=== PATIENT | male | born 1980 | race Caucasian/White ===

== ENCOUNTER 2016-07-10 21:53 | Emergency (ER) | payer MEDICAID ==
[2016-07-10 22:20] VITALS: BP 124/77
[2016-07-10] MEDS ORDERED: LORazepam 1 MG Tab PO ONE (22:22)
--- NOTE | 2016-07-10 22:28 | EDM.PDOC ---
ED HISTORY OF PRESENT ILLNESS - General Chief Complaint: Respiratory Problem Stated Complaint: TROUBLE BREATHING Time Seen by Provider: 07/10/16 22:15 Source: Reports: Patient, Old records History Limitations: Reports: No limitations - History of Present Illness INITIAL COMMENTS - FREE TEXT/NARRATIVE: 36 yo male 1/2 ppd smoker with a pHx of PE presents with medial L arm discomfort and mild SOB. Sx's have waxed and waned since this morning. Also has a mild, non-productive cough tonight. No fever or calf pain or LE edema. Also has a dx of anxiety, but has declined tx for this in the past. Symptom Onset Date: 07/10/16 Symptom Onset Time: 07:00 Timing/Duration: Reports: Hour(s):, Intermittent, Waxing/waning Severity: moderate Location, General: Reports: chest, upper extremity, left Quality: Reports: Other (No chest pain, medial L arm feels full) Improves with: Reports: None Worsens with: Reports: None Context, General: Reports: Other (smoker, hx of PE, anxiety) Associated Symptoms: Reports: cough, shortness of breath. 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) - Related Data Allergies/ADRs: Allergies Allergy/AdvReac Type Severity Reaction Status Date / Time No Known Allergies Allergy Verified 07/10/16 22:13 Home Meds: Home Meds NK [No Known Home Meds] 07/10/16 [History] Past Medical History - Past Health History Medical/Surgical History: Denies Medical/Surgical History HEENT History: Reports: Impaired vision Respiratory History: Reports: PE Musculoskeletal History: Reports: Back pain, chronic Psychiatric History: Reports: Panic attack Other Hematologic History: 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, 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 - Past Surgical History Other Respiratory Surgeries/Procedures: PE x 6 years ago GI Surgical History: Reports: Cholecystectomy Other Musculoskeletal Surgeries/Procedures:: tailbone surgery Social & Family History - Family History Family Medical History: Noncontributory - Tobacco Use Smoking Status *Q: Current Every Day Smoker Years of Tobacco use: 24 Packs/Tins Daily: 1 Second Hand Smoke Exposure: Yes - Caffeine Use Caffeine Use: Reports: Soda - Recreational Drug Use Recreational Drug Use: No ED ROS GENERAL - Review of Systems Review Of Systems: See Below Constitutional: Reports: no symptoms HEENT: Reports: No symptoms Respiratory: Reports: shortness of breath, cough. Denies: wheezing, pleuritic chest pain, sputum, hemoptysis Cardiovascular: Reports: No symptoms Endocrine: Reports: no symptoms GI/Abdominal: Reports: No symptoms : Reports: no symptoms Musculoskeletal: Reports: arm pain (L prox/medial arm) Skin: Reports: no symptoms Neurological: Reports: no symptoms Psychiatric: Reports: No symptoms ED EXAM, GENERAL - Physical Exam Exam: See Below Exam Limited By: No limitations General Appearance: alert, WD/WN, no apparent distress Eye Exam: bilateral eye: normal inspection Ears: normal external exam, normal canal, hearing grossly normal Ear Exam: bilateral ear: auricle normal, canal normal Nose: normal inspection, normal mucosa, no blood Throat/Mouth: Normal inspection, Normal lips, Normal oropharynx, Normal voice, No airway compromise Head: atraumatic, normocephalic Neck: normal inspection, supple Respiratory/Chest: no respiratory distress, lungs clear, normal breath sounds, no accessory muscle use Cardiovascular: regular rate, rhythm, no edema GI/Abdominal: normal bowel sounds, soft, non tender, no distention Back Exam: normal inspection Extremities: normal inspection, normal range of motion, non-tender, no pedal edema, other (No calf pain, Enma's sign absent) Neurological: alert, oriented, CN II-XII intact, normal cognition, normal gait, normal reflexes, no motor/sensory deficits Psychiatric: normal affect, normal mood Skin Exam: Warm, Dry, Intact, Normal color, No rash Lymphatic: no adenopathy EKG INTERPRETATION EKG Date: 07/10/16 Time: 22:25 Rhythm: NSR Rate (beats/min): 54 [place]: normal P-wave: present QRS: normal ST-T: normal QT: normal Comparison: change from previous EKG EKG Interpretation Comments: Rate has slowed by 29/min since last EKG, otherwise no change. Course - Vital Signs Text/Narrative:: Ativan 1 mg po-feels better ASA 324 mg po Last Recorded V/S: Last Vital Signs Temp 36.6 C 07/10/16 22:00 Pulse 68 07/10/16 22:00 Resp 18 07/10/16 22:00 BP 124/77 07/10/16 22:00 Pulse Ox 97 07/10/16 22:00 - Orders/Labs/Meds Orders: Active Orders 24 hr Category Date Time Status Cardiac Monitoring [RC] .As Directed Care 07/10/16 22:20 Active EKG Documentation Completion [RC] ASDIRECTED Care 07/10/16 22:20 Active Aspirin Med 07/10/16 23:21 Once 324 mg PO ONETIME ONE EKG 12 Lead [EK] Routine Ther 07/10/16 22:20 Ordered Labs: Laboratory Tests 07/10/16 07/10/16 Range/Units 22:30 22:30 D-Dimer, Quantitative < 100 L (100-400) ng/mL Troponin I < 0.01 L (0.02-0.06) NG/ML Meds: Medications Discontinued Medications Generic Name Dose Route Start Last Admin Trade Name Freq PRN Reason Stop Dose Admin Lorazepam 1 mg 07/10/16 22:22 07/10/16 22:34 Ativan PO 07/10/16 22:23 1 mg ONETIME ONE Administration Departure - Departure Time of Disposition: 23:30 Disposition: Home, Self-Care 01 Condition: good Clinical Impression: Anxiety Forms: ED Department Discharge - My Orders Last 24 Hours: My Active Orders 07/10/16 22:20 Cardiac Monitoring [RC] .As Directed EKG Documentation Completion [RC] ASDIRECTED EKG 12 Lead [EK] Routine 07/10/16 23:21 Aspirin 324 mg PO ONETIME ONE - Assessment/Plan Last 24 Hours: My Active Orders 07/10/16 22:20 Cardiac Monitoring [RC] .As Directed EKG Documentation Completion [RC] ASDIRECTED EKG 12 Lead [EK] Routine 07/10/16 23:21 Aspirin 324 mg PO ONETIME ONE
[2016-07-10] MEDS ORDERED: Aspirin 81 MG Tab.Chew PO ONE (23:21)
[2016-07-10] MEDS ORDERED: LORazepam 0.5 MG Tab PO ONE (23:25)
== END 2016-07-10 23:30 | disposition home or self-care (01) ==
LOC: FB.ED 21:53
DX: F41.9 Anxiety disorder, unspecified (principal); Z90.49 Acquired absence of other specified parts of digestive tract; F17.210 Nicotine dependence, cigarettes, uncomplicated
CPT/HCPCS: 36415; 84484; 85379; 93005; 99285; A9270

== ENCOUNTER 2016-07-12 09:28 | Emergency (ER) | payer MEDICAID ==
[2016-07-12] MEDS ORDERED: Ketorolac 60 MG/2 ML SDV IM ONE (10:37)
[2016-07-12 11:33] VITALS: BP 117/61
--- NOTE | 2016-07-12 11:35 | EDM.PDOC ---
ED HPI GENERAL MEDICAL PROBLEM - General Stated Complaint: SOB Time Seen by Provider: 07/12/16 09:28 Source of Information: Reports: Patient, Family History Limitations: Reports: No limitations - History of Present Illness INITIAL COMMENTS - FREE TEXT/NARRATIVE: 36 y.o.w.m -smoker-came to the ed due to CP. Pt was seen yesterday here in the ed. W/U was neg. Pain is worse with deep insp. 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 Had PE 7 years ago. No N/V/D Onset: gradual Onset Date: 07/11/16 Onset Time: 05:00 Duration: Intermittent Location: Reports: chest Quality: Reports: Dull Severity: moderate Improves with: Reports: Immobilization Worsens with: Reports: Breathing Associated Symptoms: Reports: denies other symptoms Left Lower Chest Pain Score (Numeric/FACES): 4 - Related Data Allergies Allergy/AdvReac Type Severity Reaction Status Date / Time No Known Allergies Allergy Verified 07/10/16 22:13 Home Meds: Home Meds NK [No Known Home Meds] 07/10/16 [History] Past Medical History - Past Health History Medical/Surgical History: Denies Medical/Surgical History HEENT History: Reports: Impaired vision Cardiovascular History: Reports: Blood clots/VTE/DVT Respiratory History: Reports: PE Musculoskeletal History: Reports: Back pain, chronic Psychiatric History: Reports: Panic attack Other Hematologic History: 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, 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 - Past Surgical History Other Respiratory Surgeries/Procedures: PE x 6 years ago GI Surgical History: Reports: Cholecystectomy Other Musculoskeletal Surgeries/Procedures:: tailbone surgery Social & Family History - Family History Family Medical History: Noncontributory - Tobacco Use Smoking Status *Q: Current Every Day Smoker Years of Tobacco use: 24 Packs/Tins Daily: 1 Second Hand Smoke Exposure: Yes - Caffeine Use Caffeine Use: Reports: Soda - Recreational Drug Use Recreational Drug Use: No ED ROS GENERAL - Review of Systems Review Of Systems: See Below Constitutional: Reports: no symptoms HEENT: Reports: No symptoms Respiratory: Reports: no symptoms Cardiovascular: Reports: Chest pain Endocrine: Reports: no symptoms GI/Abdominal: Reports: No symptoms : Reports: no symptoms Musculoskeletal: Reports: no symptoms Skin: Reports: no symptoms Neurological: Reports: no symptoms Hematologic/Lymphatic: Reports: no symptoms Immunologic: Reports: no symptoms ED EXAM, GENERAL - Physical Exam Exam: See Below Exam Limited By: No limitations General Appearance: alert, WD/WN, mild distress Ears: normal external exam, normal canal, hearing grossly normal, normal TMs Ear Exam: bilateral ear: auricle normal, canal normal, TM normal Nose: normal inspection, normal mucosa, no blood Throat/Mouth: Normal inspection, Normal lips, Normal teeth, Normal gums, Normal oropharynx, Normal voice, No airway compromise Head: atraumatic, normocephalic Neck: normal inspection, supple, non-tender, full range of motion Respiratory/Chest: no respiratory distress, lungs clear, normal breath sounds, no accessory muscle use, chest non-tender Cardiovascular: normal peripheral pulses, regular rate, rhythm, no edema, no gallop, no JVD, no murmur, no rub GI/Abdominal: normal bowel sounds, soft, no distention, no abnormal bruit, no mass, splenomegaly (Male) Exam: Deferred Rectal (Males) Exam: Deferred Back Exam: normal inspection, full range of motion, NT Extremities: normal inspection, normal range of motion, non-tender, normal capillary refill, no pedal edema Neurological: alert, oriented, CN II-XII intact, normal cognition, normal gait, normal reflexes, no motor/sensory deficits Psychiatric: normal affect, normal mood Skin Exam: Warm, Dry, Intact, Normal color, No rash Lymphatic: no adenopathy Course - Vital Signs Text/Narrative:: 36 y.o.w.m -smoker-came to the ed due to CP. Pt was seen yesterday here in the ed. W/U was neg. Pain is worse with deep insp. 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 Had PE 7 years ago. No N/V/D PE: CW tenderness, enlarged spleen Imaging: CXR NAD Labs: CBC neg Tx: Toradol 60 mg Impression: Splenomegaly, CW sprain Reexam: Improved Plan: D/C to home with F/U Last Recorded V/S: Last Vital Signs Temp 36.4 C 07/12/16 09:30 Pulse 70 07/12/16 09:30 Resp 20 07/12/16 09:30 BP 117/61 07/12/16 09:30 Pulse Ox 100 07/12/16 09:30 - Orders/Labs/Meds Labs: Laboratory Tests 07/12/16 07/12/16 Range/Units 10:20 10:20 WBC 6.4 (4.5-12.0) X10-3/uL RBC 5.03 (4.30-5.75) x10(6)uL Hgb 15.2 (11.5-15.5) g/dL Hct 45.1 (30.0-51.3) % MCV 89.7 (80-96) fL MCH 30.3 (27.7-33.6) pg MCHC 33.8 (32.2-35.4) g/dL RDW 12.5 (11.5-15.5) % Plt Count 215 (125-369) X10(3)uL MPV 9.1 (7.4-10.4) fL Neut % (Auto) 55.4 (46-82) % Lymph % (Auto) 30.9 (13-37) % [place] % (Auto) 9.5 (4-12) % Eos % (Auto) 3 (1.0-5.0) % Baso % (Auto) 1 (0-2) % Neut # 3.5 (1.6-8.3) # Lymph # 2.0 (0.6-5.0) # [place] # 0.6 (0.0-1.3) # Eos # 0.2 (0.0-0.8) # Baso # 0.1 (0.0-0.2) # Monoscreen Negative (NEGATIVE) Meds: Medications Discontinued Medications Generic Name Dose Route Start Last Admin Trade Name Freq PRN Reason Stop Dose Admin Ketorolac Tromethamine 60 mg 07/12/16 10:37 07/12/16 11:11 Toradol IM 07/12/16 10:38 60 mg ONETIME ONE Administration Departure - Departure Time of Disposition: 11:35 Disposition: Home, Self-Care 01 Condition: good Clinical Impression: Spleen enlarged, Chest wall pain Referrals: PCP,None [Primary Care Provider] - Forms: Return to Work/School Form Additional Instructions: Please take motrin for pain for now. please quit tobacco use. Please f/u, come back if symptoms get worse acutely.
--- NOTE | 2016-07-13 09:21 | CR ---
INDICATION: Chest pain anterior left. CHEST: PA and lateral views of the chest 07/12/2016 were compared with 2015 AP upright view and revealed the heart to remain normal in size and shape. Mediastinum was unremarkable. Bony structures are fairly unremarkable, with a very trivial degree of dextroconvex scoliosis upper middle thoracic spine. An active infiltrate or effusion was not identified. IMPRESSION: No acute process - no significant active disease. MTDD
== END 2016-07-12 11:54 | disposition home or self-care (01) ==
LOC: FB.ED 09:28
DX: R16.1 Splenomegaly, not elsewhere classified (principal); R07.89 Other chest pain; F17.210 Nicotine dependence, cigarettes, uncomplicated; Z90.49 Acquired absence of other specified parts of digestive tract; Z98.890 Other specified postprocedural states; Z86.718 Personal history of other venous thrombosis and embolism
CPT/HCPCS: 36415; 71020; 85025; 86308; 96372; 99284; J1885

== ENCOUNTER 2016-10-15 18:40 | Emergency (ER) | payer MEDICAID ==
--- NOTE | 2016-10-15 19:27 | EDM.PDOC ---
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 He is reporting mild burning over the dorsums of both hands, and residual varnish he was unable to remove with a skin cleanser. He has tried no med. 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 - Past Surgical History Other Respiratory Surgeries/Procedures: PE x 6 years ago GI Surgical History: Reports: Cholecystectomy Other Musculoskeletal Surgeries/Procedures:: tailbone surgery Social & Family History - Family History Family Medical History: Noncontributory - Tobacco Use Smoking Status *Q: Current Every Day Smoker Years of Tobacco use: 16 Packs/Tins Daily: 1 Second Hand Smoke Exposure: Yes - Caffeine Use Caffeine Use: Reports: Soda - Recreational Drug Use Recreational Drug Use: No ED ROS GENERAL - Review of Systems Review Of Systems: See Below Constitutional: Reports: No Symptoms HEENT: Reports: No Symptoms Respiratory: Reports: No Symptoms Cardiovascular: Reports: No Symptoms Endocrine: Reports: No Symptoms GI/Abdominal: Reports: No Symptoms Musculoskeletal: Reports: No Symptoms Skin: Reports: Other (burning sensation to hands) Neurological: Reports: No Symptoms Psychiatric: Reports: No Symptoms Hematologic/Lymphatic: Reports: No Symptoms Immunologic: Reports: No Symptoms ED EXAM, SKIN/RASH Exam: See Below Exam Limited By: No Limitations General Appearance: Alert, WD/WN, No Apparent Distress Head: Normocephalic Neck: Normal Inspection Respiratory/Chest: Lungs Clear, Normal Breath Sounds Cardiovascular: Regular Rate, Rhythm Back Exam: Normal Inspection Extremities: Normal Range of Motion, Non-Tender, Normal Capillary Refill, Other (minor injection of dorsums of both hands with residual varnish visible) Neurological: Alert, Oriented, CN II-XII Intact, No Motor/Sensory Deficits Psychiatric: Normal Affect, Normal Mood Skin: Erythema (minor) Course - Vital Signs Text/Narrative:: Following assession at the [facility] ED, the varnish was removed with Xylene solvent , and hands were thoroughly washed. No debris, swelling or vesicular eruption was detected. There was residual minor burning sensation. Last Recorded V/S: Last Vital Signs Temp 36.4 C 10/15/16 18:50 Pulse 86 10/15/16 18:50 Resp 18 10/15/16 18:50 BP 137/82 10/15/16 18:50 Pulse Ox 98 10/15/16 18:50 Departure - Departure Time of Disposition: 19:25 Disposition: Home, Self-Care 01 Condition: good Clinical Impression: Exposure to chemical irritant - Discharge Information Forms: ED Department Discharge - Problem List & Annotations (1) Exposure to chemical irritant SNOMED Code(s): 658272126 Code(s): Z77.098 - CONTACT W AND EXPSR TO OTH HAZARD, CHIEFLY NONMED, CHEMICALS Status: Acute Annotation/Comment:: Sxs cares, cortisone creme OTC for sx relief if needed. - Problem List Review Problem List Initiated/Reviewed/Updated: Yes - Assessment/Plan Plan: Follow up with PCP if needed.
[2016-10-15 19:35] VITALS: BP 135/80
== END 2016-10-15 19:30 | disposition home or self-care (01) ==
LOC: FB.ED 18:40
DX: L53.9 Erythematous condition, unspecified (principal); R20.8 Other disturbances of skin sensation; F17.210 Nicotine dependence, cigarettes, uncomplicated; Z90.49 Acquired absence of other specified parts of digestive tract; Z98.890 Other specified postprocedural states
CPT/HCPCS: 99283

== ENCOUNTER 2017-01-15 07:58 | Emergency (ER) | payer MEDICAID ==
[2017-01-15 08:20] VITALS: BP 123/70
[2017-01-15] MEDS ORDERED: Ondansetron 4 MG Tab.DIS PO ONE (08:29)
--- NOTE | 2017-01-15 08:38 | EDM.PDOC ---
ED HPI GENERAL MEDICAL PROBLEM - General Chief Complaint: Gastrointestinal Problem Stated Complaint: FLU Time Seen by Provider: 01/15/17 08:25 Source of Information: Reports: Patient, Old Records, RN History Limitations: Reports: No Limitations - History of Present Illness INITIAL COMMENTS - FREE TEXT/NARRATIVE: 36 yo male presents with nausea, vomiting, and diarrhea that began in the night last night. No fever. No hematemesis. Was sent into the ER by his boss due to his sx's. Not dizzy with standing. 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) - Related Data Allergies Allergy/AdvReac Type Severity Reaction Status Date / Time No Known Allergies Allergy Verified 01/15/17 08:21 Home Meds: Home Meds NK [No Known Home Meds] 07/10/16 [History] Past Medical History - Past Health History Medical/Surgical History: Denies Medical/Surgical History HEENT History: Reports: Impaired Vision Cardiovascular History: Reports: Blood Clots/VTE/DVT Respiratory History: Reports: PE Musculoskeletal History: Reports: Back Pain, Chronic Psychiatric History: Reports: Panic Attack Hematologic History: Reports: Other (See Below) Other Hematologic History: 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, 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 - Past Surgical History Other Respiratory Surgeries/Procedures: PE x 6 years ago GI Surgical History: Reports: Cholecystectomy Other Musculoskeletal Surgeries/Procedures:: tailbone surgery Social & Family History - Family History Family Medical History: Noncontributory - Tobacco Use Smoking Status *Q: Current Every Day Smoker Years of Tobacco use: 16 Packs/Tins Daily: 1 Second Hand Smoke Exposure: Yes - Caffeine Use Caffeine Use: Reports: Soda - Recreational Drug Use Recreational Drug Use: No ED ROS GENERAL - Review of Systems Review Of Systems: See Below Constitutional: Reports: No Symptoms, Decreased Appetite. Denies: Fever, Chills HEENT: Reports: No Symptoms Respiratory: Reports: No Symptoms Cardiovascular: Reports: No Symptoms Endocrine: Reports: No Symptoms GI/Abdominal: Reports: Abdominal Pain, Diarrhea, Decreased Appetite, Nausea, Vomiting. Denies: Black Stool, Bloody Stool, Constipation : Reports: No Symptoms Musculoskeletal: Reports: No Symptoms Skin: Reports: No Symptoms Neurological: Reports: No Symptoms Psychiatric: Reports: No Symptoms ED EXAM, GI/ABD - Physical Exam Exam: See Below Exam Limited By: No Limitations General Appearance: Alert, WD/WN, No Apparent Distress Eyes: Bilateral: Normal Appearance, EOMI Ears: Normal External Exam, Normal Canal, Hearing Grossly Normal Nose: Normal Inspection, Normal Mucosa, No Blood Throat/Mouth: Normal Inspection, Normal Lips, Normal Gums, Normal Oropharynx, Normal Voice, No Airway Compromise Head: Atraumatic, Normocephalic Neck: Normal Inspection Respiratory/Chest: No Respiratory Distress, Lungs Clear, Normal Breath Sounds, No Accessory Muscle Use Cardiovascular: Regular Rate, Rhythm, No Edema GI/Abdominal Exam: Normal Bowel Sounds, Soft, Non-Tender, No Distention Back Exam: Normal Inspection Extremities: Normal Inspection, Normal Range of Motion, Non-Tender, No Pedal Edema Neurological: Alert, Oriented, CN II-XII Intact, No Motor/Sensory Deficits Psychiatric: Normal Affect, Normal Mood Skin Exam: Warm, Dry, Intact, Normal Color, No Rash Lymphatic: No Adenopathy Course - Vital Signs Last Recorded V/S: Last Vital Signs Temp 36.6 C 01/15/17 08:00 Pulse 65 01/15/17 08:00 Resp 18 01/15/17 08:00 BP 123/70 01/15/17 08:00 Pulse Ox - Orders/Labs/Meds Meds: Medications Discontinued Medications Generic Name Dose Route Start Last Admin Trade Name Lorraine PRN Reason Stop Dose Admin Ondansetron HCl 4 mg 01/15/17 08:29 Zofran Odt PO 01/15/17 08:30 ONETIME ONE Departure - Departure Time of Disposition: 08:45 Disposition: Home, Self-Care 01 Condition: Good Clinical Impression: Gastroenteritis - Discharge Information Referrals: PCP,None [Primary Care Provider] - Forms: ED Department Discharge, ED Return to Work/School Form Additional Instructions: Take Zofran ODT every 6 hrs as needed for nausea control. Take loperamide per package instructions for diarrhea control. Take acetaminophen as needed for pain /fever control. Rest. Clear liquids only until no vomiting for 8 hrs, then advance diet slowly to include a BRAT diet. Once diarrhea is gone you may advance to a regular diet. Recheck as needed.
== END 2017-01-15 08:45 | disposition home or self-care (01) ==
LOC: FB.ED 07:58
DX: K52.9 Noninfective gastroenteritis and colitis, unspecified (principal); H54.7 Unspecified visual loss; F17.210 Nicotine dependence, cigarettes, uncomplicated
CPT/HCPCS: 99283; A9270

== ENCOUNTER 2017-01-31 12:28 | Emergency (ER) | payer OTHER, MEDICAID ==
[2017-01-31] MEDS ORDERED: Amoxicillin/Clavulanate K 875-125 MG Tab PO ONE (13:00)
--- NOTE | 2017-01-31 13:01 | EDM.PDOC ---
ED HPI GENERAL MEDICAL PROBLEM - General Chief Complaint: Laceration Stated Complaint: LACERATION LT FINGER Time Seen by Provider: 01/31/17 12:42 Source of Information: Reports: Patient, Other (coworker) History Limitations: Reports: No Limitations - History of Present Illness INITIAL COMMENTS - FREE TEXT/NARRATIVE: 36 years old zenobia weber came to the ed with his coworker after he injured his r index finger on a machine. No otyer acute injury of complains. No N/V/D BP 137/87 puls 83, temp 36.4 pulse ox 97% on RA Onset: Today Onset Date: 01/31/17 Onset Time: 12:10 Duration: Minutes:, Constant Location: Reports: Upper Extremity, Right Quality: Reports: Ache Severity: Mild Improves with: Reports: None Worsens with: Reports: None Associated Symptoms: Reports: No Other Symptoms - Related Data Allergies Allergy/AdvReac Type Severity Reaction Status Date / Time No Known Allergies Allergy Verified 01/31/17 12:41 Home Meds: Home Meds Amoxicillin/Potassium Clav [Augmentin 875-125 Tablet] 1 each PO BID #20 tablet 01/31/17 [Rx] Past Medical History - Past Health History Medical/Surgical History: Denies Medical/Surgical History HEENT History: Reports: Impaired Vision Cardiovascular History: Reports: Blood Clots/VTE/DVT Respiratory History: Reports: PE Musculoskeletal History: Reports: Back Pain, Chronic Psychiatric History: Reports: Panic Attack Hematologic History: Reports: Other (See Below) Other Hematologic History: 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, 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 - Past Surgical History Other Respiratory Surgeries/Procedures: PE x 6 years ago GI Surgical History: Reports: Cholecystectomy Other Musculoskeletal Surgeries/Procedures:: tailbone surgery Social & Family History - Family History Family Medical History: Noncontributory - Tobacco Use Smoking Status *Q: Never Smoker Years of Tobacco use: 16 Packs/Tins Daily: 1 Second Hand Smoke Exposure: Yes - Caffeine Use Caffeine Use: Reports: Soda - Recreational Drug Use Recreational Drug Use: No ED ROS GENERAL - Review of Systems Review Of Systems: See Below Constitutional: Reports: No Symptoms HEENT: Reports: No Symptoms Respiratory: Reports: No Symptoms Cardiovascular: Reports: No Symptoms Endocrine: Reports: No Symptoms GI/Abdominal: Reports: No Symptoms : Reports: No Symptoms Musculoskeletal: Reports: No Symptoms Skin: Reports: Wound (abrasion r index finger tip) Neurological: Reports: No Symptoms Psychiatric: Reports: No Symptoms Hematologic/Lymphatic: Reports: No Symptoms Immunologic: Reports: No Symptoms ED EXAM, SKIN/RASH Exam: See Below Exam Limited By: No Limitations General Appearance: Alert, WD/WN, No Apparent Distress Eye Exam: Bilateral Eye: Normal Inspection Ears: Normal External Exam Nose: Normal Inspection, Normal Mucosa, No Blood Throat/Mouth: Normal Inspection, Normal Lips, Normal Gums, Normal Voice, No Airway Compromise Head: Atraumatic, Normocephalic Neck: Normal Inspection, Supple, Non-Tender, Full Range of Motion Respiratory/Chest: No Respiratory Distress, Lungs Clear, Normal Breath Sounds, No Accessory Muscle Use, Chest Non-Tender Cardiovascular: Normal Peripheral Pulses, Regular Rate, Rhythm, No Edema, No Gallop, No JVD, No Murmur, No Rub Peripheral Pulses: 1+: Femoral (L), Femoral (R) GI/Abdominal: Normal Bowel Sounds, Soft, Non-Tender, No Organomegaly, No Distention, No Abnormal Bruit, No Mass (Male) Exam: Deferred Rectal (Males) Exam: Deferred Back Exam: Normal Inspection, Full Range of Motion, NT Extremities: Normal Range of Motion, Non-Tender, No Pedal Edema, Normal Capillary Refill Neurological: Alert, Oriented, CN II-XII Intact, Normal Cognition, Normal Gait, Normal Reflexes, No Motor/Sensory Deficits Psychiatric: Normal Affect, Normal Mood Skin: Warm, Dry, Normal Color, No Rash, Other (abrasion right finger tip, minor , No loss of function) Lymphatic: No Adenopathy Course - Vital Signs Text/Narrative:: 36 years old w m came to the ed with his coworker after he injured his r index finger on a machine. No otyer acute injury of complains. No N/V/D BP 137/87 puls 83, temp 36.4 pulse ox 97% on RA PE: Minor fingertip abrasion, no active bleed, FROM Labs/imaging: Not indicated Impression: Minor finger abrasion right index finger Tx: Abx, wound care Reexam: Improved Plan: D/C with instructions Last Recorded V/S: Last Vital Signs Temp 36.8 C 01/31/17 12:42 Pulse 73 01/31/17 13:25 Resp 18 01/31/17 12:42 BP 123/75 01/31/17 13:25 Pulse Ox 97 01/31/17 12:42 - Orders/Labs/Meds Meds: Medications Discontinued Medications Generic Name Dose Route Start Last Admin Trade Name Lorraine PRN Reason Stop Dose Admin Amoxicillin/Clavulanate Potassium 1 tab 01/31/17 13:00 01/31/17 13:04 Augmentin 875 Mg/125 Mg PO 01/31/17 13:01 1 tab ONETIME ONE Administration Departure - Departure Time of Disposition: 13:04 Disposition: Home, Self-Care 01 Condition: Good Clinical Impression: Finger abrasion Qualifiers: Encounter type: initial encounter Qualified Code(s): S60.419A - Abrasion of unspecified finger, initial encounter - Discharge Information Prescriptions: Amoxicillin/Potassium Clav [Augmentin 875-125 Tablet] 1 each PO BID #20 tablet Referrals: PCP,None [Primary Care Provider] - Forms: ED Department Discharge Additional Instructions: Please keep wound dry and clean, apply neosporine to wound, please take the Abx as recommended, please f/u in 3 days, please come back to the ed if your symptoms get worse acutely
[2017-01-31 13:29] VITALS: BP 123/75
== END 2017-01-31 13:25 | disposition home or self-care (01) ==
LOC: FB.ED 12:28
DX: S60.410A Abrasion of right index finger, initial encounter (principal); Z90.49 Acquired absence of other specified parts of digestive tract; W23.1XXA Caught, crushed, jammed, or pinched between stationary objects, initial encounter
CPT/HCPCS: 99000; 99282; A4217; A9270

== ENCOUNTER 2017-03-05 18:41 | Emergency (ER) | payer MEDICAID, OTHER ==
[2017-03-05] MEDS ORDERED: Ketorolac 60 MG/2 ML SDV IM ONE (19:10)
[2017-03-05] MEDS ORDERED: Acetaminophen/HYDROcodone 325-10 MG Tab PO ONE (20:35)
--- NOTE | 2017-03-05 20:42 | EDM.PDOC ---
ED HPI GENERAL MEDICAL PROBLEM - General Chief Complaint: Back Pain or Injury Stated Complaint: LOWER BACK PAIN Time Seen by Provider: 03/05/17 18:41 - History of Present Illness INITIAL COMMENTS - FREE TEXT/NARRATIVE: 36 y.o.w.m came to the ed after he fell 5 feet from a ladder, compaining of severe mid lower back pain. Pain is radiating to his left buttock to his left toes. no heal pain. No dizziness, no lightheadedness, no stool or urine incontinence, no flank pain, no abdominal pain. Pt had DVT at his left calf 6 years ago for which he was on Coumadin for 7 months. Cause of his DVT was not identified. No N/V/D F/C dysuria or any other acute medical issues. Onset: Today Onset Date: 03/05/17 Onset Time: 18:20 Duration: Minutes: Lower back Pain Score (Numeric/FACES): 8 - Related Data Allergies Allergy/AdvReac Type Severity Reaction Status Date / Time No Known Allergies Allergy Verified 03/05/17 18:49 Home Meds: Home Meds NK [No Known Home Meds] 03/05/17 [History] Past Medical History - Past Health History Medical/Surgical History: Denies Medical/Surgical History HEENT History: Reports: Impaired Vision Cardiovascular History: Reports: Blood Clots/VTE/DVT Respiratory History: Reports: PE Gastrointestinal History: Reports: GERD Musculoskeletal History: Reports: Back Pain, Chronic, Other (See Below) Other Musculoskeletal History: fx R 5th digit. 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 - Infectious Disease History Infectious Disease History: Reports: Chicken Pox - Past Surgical History Other Respiratory Surgeries/Procedures: PE x 6 years ago GI Surgical History: Reports: Cholecystectomy Other Musculoskeletal Surgeries/Procedures:: tailbone surgery Social & Family History - Family History Family Medical History: Noncontributory - Tobacco Use Smoking Status *Q: Current Every Day Smoker Years of Tobacco use: 17 Packs/Tins Daily: 1 Second Hand Smoke Exposure: Yes - Caffeine Use Caffeine Use: Reports: Soda - Recreational Drug Use Recreational Drug Use: No ED ROS GENERAL - Review of Systems Review Of Systems: See Below Constitutional: Reports: No Symptoms HEENT: Reports: No Symptoms Respiratory: Reports: No Symptoms Cardiovascular: Reports: No Symptoms Endocrine: Reports: No Symptoms GI/Abdominal: Reports: No Symptoms : Reports: No Symptoms Musculoskeletal: Reports: Back Pain, Leg Pain (left side down to his lef toes) Skin: Reports: No Symptoms Neurological: Reports: Difficulty Walking (due to left leg pain) Psychiatric: Reports: No Symptoms Hematologic/Lymphatic: Reports: No Symptoms Immunologic: Reports: No Symptoms ED EXAM,LOWER BACK PAIN/INJURY - Physical Exam Exam: See Below Exam Limited By: Physical Impairment General Appearance: Alert, WD/WN, Mild Distress Eye Exam: Bilateral Eye: Normal Inspection Ears: Normal External Exam Nose: Normal Inspection Throat/Mouth: Normal Inspection Head: Atraumatic, Normocephalic Neck: Normal Inspection, Supple, Non-Tender Respiratory/Chest: No Respiratory Distress, Lungs Clear, Normal Breath Sounds, No Accessory Muscle Use, Chest Non-Tender Cardiovascular: Normal Peripheral Pulses, Regular Rate, Rhythm, No Edema, No Gallop, No JVD, No Murmur, No Rub GI/Abdominal: Normal Bowel Sounds, Soft, Non-Tender, No Organomegaly, No Distention, No Abnormal Bruit, No Mass (Male) Exam: Deferred Rectal (Males) Exam: Deferred, Other (no stool incontinence) Back Exam: Normal Inspection, Decreased Range of Motion, Muscle Spasm, Vertebral Tenderness Extremities: Normal Inspection Neurological: Alert, Normal Mood/Affect, CN II-XII Intact, Oriented x 3, Flexor Response to Pain, Abnormal Sensation, Straight Leg Raise (L) (10 degree), Straight Leg Raise (R) (30 degree) Psychiatric: Normal Affect, Normal Mood Skin Exam: Warm, Dry, Intact, Normal Color, No Rash Lymphatic: No Adenopathy Course - Vital Signs Text/Narrative:: 36 y.o.w.m came to the ed after he fell 5 feet from a ladder, compaining of severe mid lower back pain. Pain is radiating to his left buttock to his left toes. no heal pain. No dizziness, no lightheadedness, no stool or urine incontinence, no flank pain, no abdominal pain. Pt had DVT at his left calf 6 years ago for which he was on Coumadin for 7 months. Cause of his DVT was not identified. No N/V/D F/C dysuria or any other acute medical issues. PE: Fall, 5 feet, back pain with sciatica Labs; UA results pending Imaging: CT Tspine and L spine NAD Impression: Thoracolumbarspine pain with sciatica, s/p fall from ladder Tx: Ice, Torafol, vicodin Reexam: Improved, patient refused to be admitted for pain control Plan: D/C with instructions, MRI tomorrow 1.30 pm Last Recorded V/S: Last Vital Signs Temp 36.4 C 03/05/17 18:41 Pulse 78 03/05/17 21:00 Resp 18 03/05/17 21:00 BP 128/74 03/05/17 21:00 Pulse Ox 99 03/05/17 21:00 - Orders/Labs/Meds Labs: Laboratory Tests 03/05/17 Range/Units 21:05 Urine Color Yellow (YELLOW) Urine Appearance Clear (CLEAR) Urine pH 7.0 H (5.0-6.5) Ur Specific [place] 1.015 (1.010-1.025) Urine Protein Negative (NEGATIVE) mg/dL Urine Glucose (UA) Normal (NEGATIVE) mg/dL Urine Ketones Negative (NEGATIVE) mg/dL Urine Occult Blood Negative (NEGATIVE) Urine Nitrite Negative (NEGATIVE) Urine Bilirubin Negative (NEGATIVE) Urine Urobilinogen Normal (NEGATIVE) mg/dL Ur Leukocyte Esterase Negative (NEGATIVE) Urine RBC 0-5 (0) Urine WBC 0-5 (0) Ur Squamous Epith Cells Rare (NS,R,O) Urine Bacteria Few H (NS) Meds: Medications Discontinued Medications Generic Name Dose Route Start Last Admin Trade Name Freq PRN Reason Stop Dose Admin Hydrocodone Bitart/Acetaminophen 1 tab 03/05/17 20:35 03/05/17 20:42 Col[place] 325-10 Mg PO 03/05/17 20:36 1 tab ONETIME ONE Administration Hydrocodone Bitart/Acetaminophen 8 tab 03/05/17 20:44 [place] 325-5 Mg PO 03/05/17 20:45 .STK-MED ONE Ketorolac Tromethamine 60 mg 03/05/17 19:10 03/05/17 19:16 Toradol IM 03/05/17 19:11 60 mg ONETIME ONE Administration Departure - Departure Time of Disposition: 20:38 Disposition: Home, Self-Care 01 Condition: Good Clinical Impression: Low back pain of thoracolumbar region with sciatica - Discharge Information Instructions: Back Pain, Adult, Sciatica, [id number] Referrals: PCP,None [Primary Care Provider] - Forms: ED Department Discharge Additional Instructions: Ice to lower back, Motrin and Vicodin for pain. Please come for an MRI tomorrow at 12.30 pm of you spine. Please come back immediately if your symptoms get worse acutely like dizziness, lightheadedness, N/V, stool or urine incontinence or acute worsening pain etc.
[2017-03-05] MEDS ORDERED: Acetaminophen/HYDROcodone 325-5 MG Tab PO ONE (20:44)
[2017-03-05 21:44] VITALS: BP 128/74
== END 2017-03-05 21:23 | disposition home or self-care (01) ==
LOC: FB.ED 18:41
DX: M54.42 Lumbago with sciatica, left side (principal); F17.210 Nicotine dependence, cigarettes, uncomplicated; Z98.890 Other specified postprocedural states; W11.XXXD Fall on and from ladder, subsequent encounter
CPT/HCPCS: 72128; 72131; 72192; 81001; 96372; 99283; A9270; J1885

== ENCOUNTER 2017-03-11 12:12 | Emergency (ER) | payer MEDICAID ==
--- NOTE | 2017-03-11 14:10 | EDM.PDOC ---
ED HPI GENERAL MEDICAL PROBLEM - General Chief Complaint: Back Pain or Injury Stated Complaint: BACK PAIN Time Seen by Provider: 03/11/17 12:12 Source of Information: Reports: Patient, Family History Limitations: Reports: No Limitations - History of Present Illness INITIAL COMMENTS - FREE TEXT/NARRATIVE: 36 years old w male s/p fall from a ladder 5 feet last week. I saw him here in the ed. He had a pos Leg rising test 10 degree on his right leg and 30 degree at this r leg. CT of his L spine and MRI of his thoracolumbar spine were neg. He was discharged with pain meds and f/u. Pt was seen by his PMD who added steroids to his home meds. The patient came to the ed today because he pain did not get any better. No new trauma, no F/C/N/V. 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, Other (see below) (ultram) Lower Back Pain Score (Numeric/FACES): 8 - Related Data Allergies Allergy/AdvReac Type Severity Reaction Status Date / Time No Known Allergies Allergy Verified 03/11/17 12:31 Home Meds: Home Meds Acetaminophen/HYDROcodone [[place] 325-5 MG] 1 tab PO Q4H PRN #6 tab 03/11/17 [Rx] Cyclobenzaprine HCl [Cyclobenzaprine HCl] 10 mg PO 03/11/17 [History] Gabapentin [Neurontin] 300 mg PO 03/11/17 [History] Ibuprofen [Motrin] 600 mg PO TID PRN #30 tab 03/11/17 [Rx] Meloxicam [Meloxicam] 15 mg PO 03/11/17 [History] predniSONE [predniSONE] 20 mg PO 03/11/17 [History] traMADol HCl [Tramadol HCl] 50 mg PO 03/11/17 [History] Past Medical History - Past Health History Medical/Surgical History: Denies Medical/Surgical History HEENT History: Reports: Impaired Vision Cardiovascular History: Reports: Blood Clots/VTE/DVT Respiratory History: Reports: PE Gastrointestinal History: Reports: GERD Musculoskeletal History: Reports: Back Pain, Chronic, Other (See Below) Other Musculoskeletal History: fx R 5th digit. 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 - Infectious Disease History Infectious Disease History: Reports: Chicken Pox - Past Surgical History HEENT Surgical History: Reports: Oral Surgery Other Respiratory Surgeries/Procedures: PE x 6 years ago GI Surgical History: Reports: Cholecystectomy Other Musculoskeletal Surgeries/Procedures:: tailbone surgery Social & Family History - Family History Family Medical History: Noncontributory - Tobacco Use Smoking Status *Q: Current Every Day Smoker Years of Tobacco use: 20 Packs/Tins Daily: 1 Second Hand Smoke Exposure: Yes - Caffeine Use Caffeine Use: Reports: Soda - Recreational Drug Use Recreational Drug Use: No ED ROS GENERAL - Review of Systems Review Of Systems: See Below Constitutional: Reports: No Symptoms HEENT: Reports: No Symptoms Respiratory: Reports: No Symptoms Cardiovascular: Reports: No Symptoms Endocrine: Reports: No Symptoms GI/Abdominal: Reports: No Symptoms : Reports: No Symptoms Musculoskeletal: Reports: Back Pain Skin: Reports: No Symptoms Neurological: Reports: No Symptoms Psychiatric: Reports: No Symptoms Hematologic/Lymphatic: Reports: No Symptoms Immunologic: Reports: No Symptoms ED EXAM,LOWER BACK PAIN/INJURY - Physical Exam Exam: See Below Exam Limited By: No Limitations General Appearance: Alert, WD/WN, Mild Distress Eye Exam: Bilateral Eye: Normal Inspection Ears: Normal External Exam Nose: Normal Inspection Throat/Mouth: Normal Inspection Head: Atraumatic, Normocephalic Neck: Normal Inspection Respiratory/Chest: No Respiratory Distress, Lungs Clear Cardiovascular: Normal Peripheral Pulses, Regular Rate, Rhythm GI/Abdominal: Normal Bowel Sounds, Soft, Non-Tender (Male) Exam: Deferred Rectal (Males) Exam: Deferred Back Exam: Normal Inspection, Decreased Range of Motion, Vertebral Tenderness Extremities: Normal Inspection, Normal Range of Motion, Non-Tender, No Pedal Edema Neurological: Alert, Normal Mood/Affect, Normal Dorsiflexion, CN II-XII Intact, Abnormal Gait (pt wask slowly, but normal otherwise), Straight Leg Raise (L) ( 20 degree ), Straight Leg Raise (R) (45 degree) Psychiatric: Normal Affect, Normal Mood Skin Exam: Warm, Dry, Intact, Normal Color, No Rash Lymphatic: No Adenopathy Course - Vital Signs Text/Narrative:: 36 years old w male s/p fall from a ladder 5 feet last week. I saw him here in the ed. He had a pos Leg rising test 10 degree on his right leg and 30 degree at this r leg. CT of his L spine and MRI of his thoracolumbar spine were neg. He was discharged with pain meds and f/u. Pt was seen by his PMD who added steroids to his home meds. The patient came to the ed today because he pain did not get any better. No new trauma, no F/C/N/V. BP 129/56 pulse 59 temp 36.6 RR 20 Pulse ox 100 PE: WNWD WM NAD with a slow walk and tender mid lower back Imaging/Labs not indicated. I have discussed the L Spine result with Dr. Dash Impression: Low back pain after a fall Plan: I spoke with a back specialist clinic at [facility]. My report, including CT and MRI Imaging studies were faxed to the [facility]. The pt has received the clinic number and the [facility] has received the Pt's tel number. Pt was discharged with instructions. + Last Recorded V/S: Last Vital Signs Temp 36.4 C 03/11/17 14:31 Pulse 67 03/11/17 14:31 Resp 16 03/11/17 14:31 BP 121/67 03/11/17 14:31 Pulse Ox 99 03/11/17 14:31 Departure - Departure Time of Disposition: 14:10 Disposition: Home, Self-Care 01 Condition: Good Clinical Impression: Low back pain of thoracolumbar region with sciatica Low back pain Qualifiers: Chronicity: acute Back pain laterality: midline Sciatica presence: with sciatica Sciatica laterality: sciatica of left side Qualified Code(s): M54.42 - Lumbago with sciatica, left side - Discharge Information Prescriptions: Acetaminophen/HYDROcodone [[place] 325-5 MG] 1 tab PO Q4H PRN #6 tab PRN Reason: severe pain only Ibuprofen [Motrin] 600 mg PO TID PRN #30 tab PRN Reason: moderate pain Instructions: Sciatica, [id number], Back Pain, Adult, [id number] Referrals: PCP,None [Primary Care Provider] - Forms: ED Department Discharge, ED Return to Work/School Form Additional Instructions: Please apply ice to lower back, please take the meds as recommended, please follow up with the spine clinic in [place] as recommended. Please call for an appointment a.s.a.p. Please come back to the ed if your symptoms get worse acutely.
[2017-03-11 14:51] VITALS: BP 121/67
== END 2017-03-11 14:34 | disposition home or self-care (01) ==
LOC: FB.ED 12:12
DX: M54.42 Lumbago with sciatica, left side (principal); F17.210 Nicotine dependence, cigarettes, uncomplicated
CPT/HCPCS: 99283

== ENCOUNTER 2017-05-02 04:36 | Emergency (ER) | payer MEDICAID, OTHER ==
[2017-05-02] MEDS ORDERED: Ondansetron 8 MG Tab.DIS PO ONE (05:49)
[2017-05-02] MEDS ORDERED: Sodium Chloride 0.9% 1,000 ML IV ONE (06:10)
[2017-05-02] MEDS ORDERED: Sodium Chloride 0.9% 10 ML Syringe FLUSH PRN (06:15)
[2017-05-02 08:01] VITALS: BP 124/60
--- NOTE | 2017-05-02 10:59 | ER ---
DATE SEEN: 05/02/2017 TIME SEEN: 0500 hours. CHIEF COMPLAINT: Nausea and vomiting. HISTORY OF PRESENT ILLNESS: The patient is sick for the last 2 days. It gradually progressively increased in muscle aches and weakness. Denies headaches or neck stiffness, but has now sore throat. Minimal cough. Denies blood in the stool or black tarry stool. He feels he has eaten unusual food that might have precipitated this. He has not had influenza shots nor has he had pneumococcal shots. REVIEW OF SYSTEMS: Negative. SOCIAL HISTORY: The patient smokes cigarettes. PAST MEDICAL HISTORY: Occasional back pain. In the past, he has had an enlarged spleen, not today. MEDICATIONS: 1. For chronic pain are Neurontin 300 mg b.i.d. and cyclobenzaprine 10 mg p.r.n. 2. For asthma, albuterol inhaler. 3. Acetaminophen and hydrocodone for low back pain. The patient denies symptoms or neuro symptoms. Denies headache, neck stiffness, compromise in his vision, or weakness or paresis. PHYSICAL EXAMINATION: VITAL SIGNS: Blood pressure 117/55, heart rate 90, respirations 18, oxygen saturation 97%, 92.07 kilos, BMI 30.9. CONSTITUTIONAL: The patient feels weak, is lying and not very animated. Feels miserable. HEENT: PERRLA intact. Pharynx, dry mucosa. Minimal pharyngeal erythema. Quick strep obtained. Nasal smear for influenza pain obtained. LUNGS: Clear without rales, rhonchi, or wheezes. HEART: S1, S2. No tachycardia. ABDOMEN: Soft. No guarding. No abdominal discomfort. [id number] increased bowel sounds. No CVA percussion tenderness. EXTREMITIES: Without abnormality. DERM: Negative. Deep tendon reflexes hypoactive, but present. Cranial nerves 2 through 12 intact. Gait intact. No tremor. DIAGNOSTIC DATA: Quick strep is negative. Influenza test was negative. Chest x-ray is negative. CBC; white count 11,100, PMNs 84, lymphocytes 5, monos 8.5%. CMP is completely normal except for trace elevated ALT. Urinalysis was not performed. ASSESSMENT: Viral enteritis, gastroenteritis. Tobacco use. PLAN: A 1000 mL normal saline flush. After the patient had received the medicine, he has felt somewhat better, but not markedly better. The patient is to use a face mask to diminish the spread of the respiratory component of his infection. DIAGNOSES: Viral bronchitis and viral gastroenteritis, reassured. The patient was given 2 days off work. Use Tylenol or ibuprofen p.r.n. Stop smoking. Hx of asthma /[id number] LUIS/MACKENZIE MELTOND
--- NOTE | 2017-05-03 10:23 | CR ---
INDICATION: Flu symptoms with cough. CHEST: PA and lateral views of the chest 05/02/2017, compared with 07/12/2016 and 02/20/2016, revealed poor inspiration, emphasizing markings at the lung bases, making it difficult to entirely exclude minimal patchy bronchopneumonia at the lung bases, especially at the right lung base medially. However, no consolidating pneumonia or effusion was seen. Heart, mediastinum, and bony thorax were unremarkable, as previously. IMPRESSION: No definite active disease, however, difficult to exclude minimal patchy bronchopneumonia at the lung bases due to a relatively poor inspiration. MTDD
== END 2017-05-02 08:02 | disposition home or self-care (01) ==
LOC: FB.ED 04:36
DX: A08.4 Viral intestinal infection, unspecified (principal); J20.8 Acute bronchitis due to other specified organisms; F17.210 Nicotine dependence, cigarettes, uncomplicated; Z71.6 Tobacco abuse counseling
CPT/HCPCS: 36415; 71020; 80053; 85025; 87081; 87430; 87804; 96360; 99284; A9270; J7040

== ENCOUNTER 2017-05-03 00:25 | Emergency (ER) | payer MEDICAID ==
[2017-05-03] MEDS ORDERED: Morphine 2 MG/ML Syringe IVPUSH ONE (00:40)
[2017-05-03] MEDS ORDERED: Ondansetron 4 MG/2 ML SDV IVPUSH ONE (00:41)
[2017-05-03] MEDS ORDERED: Azithromycin 250 MG Tab PO ONE (01:37)
[2017-05-03] MEDS ORDERED: Acetaminophen/Codeine 300-30 MG Tab PO ONE (01:37)
[2017-05-03] MEDS ORDERED: Ondansetron 4 MG Tab.DIS PO ONE (01:39)
[2017-05-03 01:50] VITALS: BP 108/64
--- NOTE | 2017-05-03 14:58 | ER ---
DATE SEEN: 05/03/2017 REASON FOR VISIT: Abdominal pain. HISTORY OF PRESENT ILLNESS: This is a 37-year-old male, who presented to the ER with abdominal pain, sudden onset. Pain was severe, periumbilical, and suprapubic. He was in the ER earlier in the morning, and got some IV fluids for nausea and vomiting. He states that this pain is severe, and also associated with diarrhea. REVIEW OF SYSTEMS: Cough, but denies any fever or chills. PAST MEDICAL HISTORY: 1. Anxiety. 2. Low back pain. ALLERGIES: No known allergies. PHYSICAL EXAMINATION: GENERAL: He appears anxious, not in any cardiopulmonary distress. VITAL SIGNS: Blood pressure is normal, pulse is 65, and temperature is 97.7. EARS, NOSE, AND THROAT: Negative. NECK: Supple. CHEST: Clear. ABDOMEN: Soft and diffusely tender with no focal tenderness or rebound. No rigidity. Bowel sounds are present. No masses. LABORATORY DATA: Normal labs including CBC, CMP, and amylase. UA was negative. DIAGNOSTIC STUDIES: CT of abdomen and pelvis was suggestive of bibasilar consolidations of the chest, but otherwise, no acute abnormality of the abdomen or pelvis. Also, some pulmonary nodules. IMPRESSION: 1. Acute gastroenteritis. 2. Bibasilar pneumonia. 3. Chronic pain. 4. Anxiety. PLAN: Zofran and morphine 2 mg IV. Discharge him on Z-Fernandez, Zofran, and Tylenol No. 3. Follow up in the office tomorrow. Time Seen: 0130 hours. /[id number] SHAHIDA/MACKENZIE
== END 2017-05-03 01:50 | disposition home or self-care (01) ==
LOC: FB.ED 00:25
DX: K52.9 Noninfective gastroenteritis and colitis, unspecified (principal); J18.8 Other pneumonia, unspecified organism; G89.29 Other chronic pain; F41.9 Anxiety disorder, unspecified
CPT/HCPCS: 36415; 74150; 80053; 81001; 82150; 85025; 96374; 96375; 99284; J2270; J2405; A9270-GY

== ENCOUNTER 2017-05-22 10:40 | Emergency (ER) | payer MEDICAID ==
--- NOTE | 2017-05-22 11:18 | EDM.PDOC ---
ED HPI GENERAL MEDICAL PROBLEM - General Chief Complaint: Chest Pain Stated Complaint: chest pain Time Seen by Provider: 05/22/17 10:50 Source of Information: Reports: Patient History Limitations: Reports: No Limitations - History of Present Illness INITIAL COMMENTS - FREE TEXT/NARRATIVE: Ester comes to [facility] ED with a 2 minute episode of anterior chest pain yesterday , and a relapse of similar chest pain at 8 am today with some escalation of sxs that lasted a half hour, and some minor residual pain that has persisted. Pain remains anterior left of the sternum, with some radiation into the LUE and tindling in the L hand. Pain is sharp, at times aggravated with a deep breath. There is no palpitations, dizziness, sweats, GI upset or back sxs. He has tried no meds. \ Ester reports sxs of SOB since February 2017. He has been seen by a PCP recently who has recommended evaluation including a Chest CT 1 week ago reportedly negative, and PFTs recently results pending. Midsternal chest into L arm Pain Score (Numeric/FACES): 6 - Related Data Allergies Allergy/AdvReac Type Severity Reaction Status Date / Time No Known Allergies Allergy Verified 05/03/17 00:32 Home Meds: Home Meds Acetaminophen/HYDROcodone [[place] 325-5 MG] 1 tab PO Q4H PRN #6 tab 03/11/17 [Rx] Cyclobenzaprine HCl [Cyclobenzaprine HCl] 10 mg PO DAILY 03/11/17 [History] Gabapentin [Neurontin] 300 mg PO BID 03/11/17 [History] Ibuprofen [Motrin] 600 mg PO TID PRN #30 tab 03/11/17 [Rx] Albuterol Sulfate [Ventolin Hfa] 2 inh INH Q4HR PRN 05/02/17 [History] Ondansetron [Zofran ODT] 4 mg PO Q6H PRN #12 tab.dis 05/02/17 [Rx] Past Medical History - Past Health History Medical/Surgical History: Denies Medical/Surgical History HEENT History: Reports: Impaired Vision Cardiovascular History: Reports: Blood Clots/VTE/DVT Respiratory History: Reports: PE Gastrointestinal History: Reports: GERD Musculoskeletal History: Reports: Back Pain, Chronic, Other (See Below) Other Musculoskeletal History: fx R 5th digit. 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 - Infectious Disease History Infectious Disease History: Reports: Chicken Pox - Past Surgical History HEENT Surgical History: Reports: Oral Surgery Other Respiratory Surgeries/Procedures: PE x 6 years ago GI Surgical History: Reports: Cholecystectomy Other Musculoskeletal Surgeries/Procedures:: tailbone surgery Social & Family History - Family History Family Medical History: Noncontributory - Tobacco Use Smoking Status *Q: Current Every Day Smoker Years of Tobacco use: 20 Packs/Tins Daily: 1 Second Hand Smoke Exposure: Yes - Caffeine Use Caffeine Use: Reports: Soda - Recreational Drug Use Recreational Drug Use: No ED ROS GENERAL - Review of Systems Review Of Systems: See Below Constitutional: Reports: No Symptoms HEENT: Reports: No Symptoms Respiratory: Reports: Shortness of Breath, Cough, Other (anterior chest pain) Cardiovascular: Reports: Chest Pain Endocrine: Reports: No Symptoms GI/Abdominal: Reports: No Symptoms : Reports: No Symptoms Musculoskeletal: Reports: No Symptoms Skin: Reports: No Symptoms Neurological: Reports: No Symptoms Psychiatric: Reports: No Symptoms Hematologic/Lymphatic: Reports: No Symptoms Immunologic: Reports: No Symptoms ED EXAM, GENERAL - Physical Exam Exam: See Below Exam Limited By: No Limitations General Appearance: Alert, WD/WN, No Apparent Distress, Anxious Eye Exam: Bilateral Eye: EOMI, Normal Inspection, PERRL Ears: Normal External Exam Nose: Normal Inspection Throat/Mouth: Normal Inspection, Normal Oropharynx Head: Atraumatic, Normocephalic Neck: Normal Inspection, Supple, Non-Tender, Full Range of Motion Respiratory/Chest: No Respiratory Distress, Lungs Clear, Normal Breath Sounds, No Accessory Muscle Use, Other (tenderness overly L 4th costochondral cartilage , no swelling) Cardiovascular: Normal Peripheral Pulses, Regular Rate, Rhythm, No Murmur GI/Abdominal: Normal Bowel Sounds, Soft, Non-Tender, No Organomegaly, No Distention, No Mass (Male) Exam: Deferred Rectal (Males) Exam: Deferred Back Exam: Normal Inspection Extremities: Normal Inspection Neurological: Alert, Oriented, CN II-XII Intact, Normal Gait, No Motor/Sensory Deficits Psychiatric: Anxious Skin Exam: Warm, Dry Lymphatic: No Adenopathy Course - Vital Signs Text/Narrative:: Ester remained stable at the ED. He was administered Ibuprofen 600 mg po for atypical chest pain. Chest x ray and lab work were baseline. Last Recorded V/S: Last Vital Signs Temp 36.4 C 05/22/17 10:45 Pulse 76 05/22/17 10:45 Resp 18 05/22/17 10:45 BP 124/67 05/22/17 10:45 Pulse Ox 100 05/22/17 10:45 - Orders/Labs/Meds Orders: Active Orders 24 hr Category Date Time Status Chest 2V [CR] Stat Exams 05/22/17 11:11 Taken EKG 12 Lead [EK] Routine Ther 05/22/17 10:50 Ordered Labs: Laboratory Tests 05/22/17 05/22/17 05/22/17 Range/Units 10:55 10:55 10:55 WBC 6.4 (4.5-12.0) X10-3/uL RBC 5.08 (4.30-5.75) x10(6)uL Hgb 15.4 (11.5-15.5) g/dL Hct 45.5 (30.0-51.3) % MCV 89.5 (80-96) fL MCH 30.3 (27.7-33.6) pg MCHC 33.8 (32.2-35.4) g/dL RDW 12.0 (11.5-15.5) % Plt Count 271 (125-369) X10(3)uL MPV 8.6 (7.4-10.4) fL Neut % (Auto) 62.6 (46-82) % Lymph % (Auto) 25.8 (13-37) % Leslie % (Auto) 8.0 (4-12) % Eos % (Auto) 3 (1.0-5.0) % Baso % (Auto) 1 (0-2) % Neut # (Auto) 4.0 (1.6-8.3) # Lymph # (Auto) 1.6 (0.6-5.0) # Leslie # (Auto) 0.5 (0.0-1.3) # Eos # (Auto) 0.2 (0.0-0.8) # Baso # (Auto) 0.1 (0.0-0.2) # D-Dimer, Quantitative < 100 L (100-400) ng/mL Sodium 140 (135-145) mmol/L Potassium 4.2 (3.5-5.3) mmol/L Chloride 105 (100-110) mmol/L Carbon Dioxide 25 (21-32) mmol/L BUN 11 (7-18) mg/dL Creatinine 1.2 (0.70-1.30) mg/dL Est Cr Clr Drug Dosing 81.54 mL/min Estimated GFR (MDRD) > 60 (>60) BUN/Creatinine Ratio 9.2 (9-20) Glucose 103 (80-116) mg/dL Calcium 8.8 (8.6-10.2) mg/dL Total Bilirubin 0.4 (0.1-1.3) mg/dL AST 16 D (5-25) IU/L ALT 29 D (12-36) U/L Alkaline Phosphatase 91 (56-112) IU/L Troponin I (<0.017-0.056) ng/mL C-Reactive Protein (0.5-0.9) mg/dL Total Protein 7.0 (6.0-8.0) g/dL Albumin 3.7 (3.5-5.2) g/dL Globulin 3.3 g/dL Albumin/Globulin Ratio 1.1 /18 Range/Units 10:55 WBC (4.5-12.0) X10-3/uL RBC (4.30-5.75) x10(6)uL Hgb (11.5-15.5) g/dL Hct (30.0-51.3) % MCV (80-96) fL MCH (27.7-33.6) pg MCHC (32.2-35.4) g/dL RDW (11.5-15.5) % Plt Count (125-369) X10(3)uL MPV (7.4-10.4) fL Neut % (Auto) (46-82) % Lymph % (Auto) (13-37) % Leslie % (Auto) (4-12) % Eos % (Auto) (1.0-5.0) % Baso % (Auto) (0-2) % Neut # (Auto) (1.6-8.3) # Lymph # (Auto) (0.6-5.0) # Leslie # (Auto) (0.0-1.3) # Eos # (Auto) (0.0-0.8) # Baso # (Auto) (0.0-0.2) # D-Dimer, Quantitative (100-400) ng/mL Sodium (135-145) mmol/L Potassium (3.5-5.3) mmol/L Chloride (100-110) mmol/L Carbon Dioxide (21-32) mmol/L BUN (7-18) mg/dL Creatinine (0.70-1.30) mg/dL Est Cr Clr Drug Dosing mL/min Estimated GFR (MDRD) (>60) BUN/Creatinine Ratio (9-20) Glucose (80-116) mg/dL Calcium (8.6-10.2) mg/dL Total Bilirubin (0.1-1.3) mg/dL AST (5-25) IU/L ALT (12-36) U/L Alkaline Phosphatase (56-112) IU/L Troponin I < 0.017 L (<0.017-0.056) ng/mL C-Reactive Protein < 0.2 L (0.5-0.9) mg/dL Total Protein (6.0-8.0) g/dL Albumin (3.5-5.2) g/dL Globulin g/dL Albumin/Globulin Ratio Meds: Medications Discontinued Medications Generic Name Dose Route Start Last Admin Trade Name Freq PRN Reason Stop Dose Admin Ibuprofen 600 mg 05/22/17 11:45 Motrin PO 05/22/17 11:46 ONETIME ONE Departure - Departure Time of Disposition: 12:00 Disposition: Home, Self-Care 01 Condition: Fair Clinical Impression: Chest wall pain Referrals: Melvin Porter PA [Primary Care Provider] - Forms: ED Department Discharge - Problem List & Annotations (1) Chest wall pain SNOMED Code(s): 651138160 Code(s): R07.89 - OTHER CHEST PAIN Status: Acute Current Visit: Yes Annotation/Comment:: I suggested Ibuprofen for chest wall pain, and provided reassurance. He was given a note for work, and may return to work tomorrow without restriction. - Problem List Review Problem List Initiated/Reviewed/Updated: Yes - My Orders Last 24 Hours: My Active Orders 05/22/17 10:50 EKG 12 Lead [EK] Routine 05/22/17 11:11 Chest 2V [CR] Stat - Assessment/Plan Last 24 Hours: My Active Orders 05/22/17 10:50 EKG 12 Lead [EK] Routine 05/22/17 11:11 Chest 2V [CR] Stat Plan: Follow up with PCP if needed.
[2017-05-22] MEDS ORDERED: Ibuprofen 600 MG Tab PO ONE (11:45)
--- NOTE | 2017-05-22 12:19 | CR ---
INDICATION: Atypical anterior chest pain. CHEST: PA and lateral views of the chest 05/22/2017 were compared with 2016 and 07/12/2016 and revealed a better inspiration on the current study, with no active infiltrate or effusion identified. The heart is normal in size and shape. Mediastinum and bony thorax were unremarkable. Overlying EKG leads are noted. IMPRESSION: No active disease. MTDD
[2017-05-22 15:37] VITALS: BP 117/63
== END 2017-05-22 12:08 | disposition home or self-care (01) ==
LOC: FB.ED 10:40
DX: R07.89 Other chest pain (principal); F17.210 Nicotine dependence, cigarettes, uncomplicated; Z86.711 Personal history of pulmonary embolism; Z79.899 Other long term (current) drug therapy
CPT/HCPCS: 36415; 71046; 80053; 84484; 85025; 85379; 86140; 93005; 99285; A9270

== ENCOUNTER 2017-05-28 11:29 | Emergency (ER) | payer MEDICAID | END 2017-05-28 11:39 | disposition left against medical advice (07) | LOC: FB.ED 11:29 | DX: Z53.21 Procedure and treatment not carried out due to patient leaving prior to being seen by health care provider (principal) | CPT/HCPCS: 99282 ==

== ENCOUNTER 2017-09-10 08:37 | Emergency (ER) | payer MEDICAID ==
[2017-09-10 09:03] VITALS: BP 126/59
[2017-09-10] MEDS ORDERED: Ketorolac 60 MG/2 ML SDV IM ONE (09:12)
--- NOTE | 2017-09-10 09:18 | EDM.PDOC ---
ED HPI GENERAL MEDICAL PROBLEM - General Chief Complaint: Back Pain or Injury Stated Complaint: BACK PAIN Time Seen by Provider: 09/10/17 09:00 Source of Information: Reports: Patient History Limitations: Reports: Physical Impairment - History of Present Illness INITIAL COMMENTS - FREE TEXT/NARRATIVE: Ester comes to [facility] ED with low back pain that occurred suddenly while lifting boxes this am. Pain is confined to the lower back, nonradiating to the lower extremities, and worse with bending or twisting. He has tried no meds. His general health is good. Of interest is a fall off a ladder about 6 mos ago, and residual back pain for about 2 weeks. He had completed CT and MRI scans of thoracic and lumbar spine which were interpreted as normal for age. He has tried no meds. Lower Back Pain Score (Numeric/FACES): 8 - Related Data Allergies Allergy/AdvReac Type Severity Reaction Status Date / Time No Known Allergies Allergy Verified 05/03/17 00:32 Home Meds: Home Meds NK [No Known Home Meds] 09/10/17 [History] Past Medical History - Past Health History Medical/Surgical History: Denies Medical/Surgical History HEENT History: Reports: Impaired Vision Cardiovascular History: Reports: Blood Clots/VTE/DVT Respiratory History: Reports: PE Gastrointestinal History: Reports: GERD Musculoskeletal History: Reports: Back Pain, Chronic, Other (See Below) Other Musculoskeletal History: fx R 5th digit. 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 - Infectious Disease History Infectious Disease History: Reports: Chicken Pox - Past Surgical History HEENT Surgical History: Reports: Oral Surgery Other Respiratory Surgeries/Procedures: PE x 6 years ago GI Surgical History: Reports: Appendectomy, Cholecystectomy Other Musculoskeletal Surgeries/Procedures:: tailbone surgery Social & Family History - Family History Family Medical History: Noncontributory - Tobacco Use Smoking Status *Q: Current Every Day Smoker Years of Tobacco use: 15 Packs/Tins Daily: 0.5 Second Hand Smoke Exposure: Yes - Caffeine Use Caffeine Use: Reports: Soda - Recreational Drug Use Recreational Drug Use: No ED ROS GENERAL - Review of Systems Review Of Systems: ROS reveals no pertinent complaints other than HPI. ED EXAM,LOWER BACK PAIN/INJURY - Physical Exam Exam: See Below Exam Limited By: Physical Impairment General Appearance: Alert, WD/WN, Anxious, Moderate Distress Head: Atraumatic, Normocephalic Neck: Normal Inspection, Supple, Non-Tender, Full Range of Motion Respiratory/Chest: Lungs Clear, Normal Breath Sounds, Chest Non-Tender Cardiovascular: Regular Rate, Rhythm, No Murmur GI/Abdominal: Normal Bowel Sounds, Soft, Non-Tender, No Organomegaly, No Distention, No Mass Back Exam: Decreased Range of Motion, Vertebral Tenderness (L5S1) Extremities: Normal Inspection, Normal Range of Motion, Non-Tender, No Pedal Edema Neurological: Alert, Normal Mood/Affect, CN II-XII Intact, Normal Plantar Flexion, Normal Reflexes, No Motor/Sensory Deficits, Oriented x 3 Psychiatric: Normal Affect, Anxious Skin Exam: Warm, Dry, Intact, Normal Color, No Rash Lymphatic: No Adenopathy Course - Vital Signs Text/Narrative:: Following assessment at the [facility] ED, I administered Toradol 60 mg IM for pain relief. A repeat examination 1/2 hr later was unchanged, and he was administered Flexeril 10 mg po and advised to turn onto his back with knees flexed for comfort. Patient subsequently improved to request discharge. Last Recorded V/S: Last Vital Signs Temp 36.4 C 09/10/17 09:02 Pulse Resp 18 09/10/17 09:02 BP 126/59 L 09/10/17 09:02 Pulse Ox 99 09/10/17 09:02 - Orders/Labs/Meds Meds: Medications Discontinued Medications Generic Name Dose Route Start Last Admin Trade Name Lorraine PRN Reason Stop Dose Admin Cyclobenzaprine HCl 10 mg 09/10/17 09:54 09/10/17 09:59 Flexeril PO 09/10/17 09:55 10 mg ONETIME ONE Administration Ketorolac Tromethamine 60 mg 09/10/17 09:12 09/10/17 09:18 Toradol IM 09/10/17 09:13 60 mg ONETIME ONE Administration Departure - Departure Time of Disposition: 10:10 Disposition: Home, Self-Care 01 Condition: Fair Clinical Impression: Low back pain Qualifiers: Chronicity: acute Back pain laterality: midline Sciatica presence: with sciatica Sciatica laterality: sciatica of left side Qualified Code(s): M54.42 - Lumbago with sciatica, left side - Discharge Information Referrals: PCP,None [Primary Care Provider] - Forms: ED Department Discharge - Problem List & Annotations (1) Low back pain SNOMED Code(s): 825993992 Code(s): M54.5 - LOW BACK PAIN Status: Acute Current Visit: Yes Annotation/Comment:: Ester improved with conservative management and observation. He has Flexeril and NSAIDs at home for prior relapses. Activity as tolerated. Qualifiers: Chronicity: acute Back pain laterality: midline Qualified Code(s): M54.42 - Lumbago with sciatica, left side - Problem List Review Problem List Initiated/Reviewed/Updated: Yes - Assessment/Plan Plan: Follow up with PCP if needed.
[2017-09-10] MEDS ORDERED: Cyclobenzaprine 10 MG Tab PO ONE (09:54)
== END 2017-09-10 10:30 | disposition home or self-care (01) ==
LOC: FB.ED 08:37
DX: M54.42 Lumbago with sciatica, left side (principal); F17.210 Nicotine dependence, cigarettes, uncomplicated; X50.0XXA Overexertion from strenuous movement or load, initial encounter
CPT/HCPCS: 96372; 99283; A9270; J1885

== ENCOUNTER 2017-09-25 22:46 | Emergency (ER) | payer MEDICAID ==
[2017-09-25] MEDS ORDERED: Lidocaine 2% Viscous Solution 15 ML Cup TOP ONE (22:59)
--- NOTE | 2017-09-25 23:13 | EDM.PDOC ---
ED HPI GENERAL MEDICAL PROBLEM - General Chief Complaint: Skin Complaint Stated Complaint: SUNBURN Time Seen by Provider: 09/25/17 22:55 Source of Information: Reports: Patient History Limitations: Reports: No Limitations - History of Present Illness INITIAL COMMENTS - FREE TEXT/NARRATIVE: Complains of painful sunburn to neck and shoulders. Was exposed to sun today, did not use sunblock. No relief with topical aloe vera, Ibuprofen or Tylenol. Takes no medication otherwise. 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 - Infectious Disease History Infectious Disease History: Reports: Chicken Pox - Past Surgical History HEENT Surgical History: Reports: Oral Surgery Other Respiratory Surgeries/Procedures: PE x 6 years ago GI Surgical History: Reports: Appendectomy, Cholecystectomy Other Musculoskeletal Surgeries/Procedures:: tailbone surgery Social & Family History - Family History Family Medical History: Noncontributory - Caffeine Use Caffeine Use: Reports: Soda ED ROS GENERAL - Review of Systems Review Of Systems: See Below Constitutional: Reports: No Symptoms HEENT: Reports: No Symptoms Respiratory: Reports: No Symptoms Cardiovascular: Reports: No Symptoms Endocrine: Reports: No Symptoms GI/Abdominal: Reports: No Symptoms : Reports: No Symptoms Musculoskeletal: Reports: No Symptoms Skin: Reports: Other (painful sunburn to neck and shoulders) Neurological: Reports: No Symptoms Psychiatric: Reports: No Symptoms Hematologic/Lymphatic: Reports: No Symptoms Immunologic: Reports: No Symptoms ED EXAM, SKIN/RASH Exam: See Below Exam Limited By: No Limitations General Appearance: Alert, WD/WN, No Apparent Distress Ears: Normal External Exam Nose: Normal Inspection Throat/Mouth: Normal Inspection Head: Atraumatic, Normocephalic Neck: Supple Respiratory/Chest: No Respiratory Distress, Lungs Clear, Normal Breath Sounds Cardiovascular: Regular Rate, Rhythm, No Gallop, No JVD, No Murmur, No Rub GI/Abdominal: No Distention Back Exam: Normal Inspection Extremities: Normal Inspection Neurological: Alert, Oriented, Normal Cognition, Normal Gait, No Motor/Sensory Deficits Psychiatric: Normal Affect, Normal Mood Skin: Warm, Dry, Intact, Other (erythema to shoulders and posterior neck, no blisters) Course - Vital Signs Text/Narrative:: VSS - Orders/Labs/Meds Orders: Active Orders 24 hr Category Date Time Status Lidocaine 2% [Xylocaine 2% Viscous] Med 09/25/17 22:59 Once 15 ml TOP ONETIME ONE Medication Orders Lidocaine HCl (Xylocaine 2% Viscous) 15 ml TOP ONETIME ONE Stop: 09/25/17 23:00 Meds: Medications Generic Name Dose Route Start Last Admin Trade Name Lorraine PRN Reason Stop Dose Admin Lidocaine HCl 15 ml 09/25/17 22:59 Xylocaine 2% Viscous TOP 09/25/17 23:00 ONETIME ONE - Re-Assessments/Exams Free Text/Narrative Re-Assessment/Exam: 09/25/17 23:15 Viscous lidocaine 2% applied topically to affected areas. 09/25/17 23:15 Departure - Departure Time of Disposition: 23:13 Disposition: Home, Self-Care 01 Condition: Good Clinical Impression: First degree sunburn - Discharge Information Instructions: Sunburn, Adult Referrals: PCP,None [Primary Care Provider] - Additional Instructions: Continue Ibuprofen as needed. Use topical anesthetic spray or cream as needed. - Problem List & Annotations (1) First degree sunburn SNOMED Code(s): 439209781 Code(s): L55.0 - SUNBURN OF FIRST DEGREE Status: Acute Current Visit: Yes Annotation/Comment:: OTC symptomatic treatment - My Orders Last 24 Hours: My Active Orders 09/25/17 22:59 Lidocaine 2% [Xylocaine 2% Viscous] 15 ml TOP ONETIME ONE - Assessment/Plan Last 24 Hours: My Active Orders 09/25/17 22:59 Lidocaine 2% [Xylocaine 2% Viscous] 15 ml TOP ONETIME ONE
[2017-09-26 00:01] VITALS: BP 139/77
== END 2017-09-25 23:35 | disposition home or self-care (01) ==
LOC: FB.ED 22:46
DX: L55.0 Sunburn of first degree (principal)
CPT/HCPCS: 99282; A9270-GY

== ENCOUNTER 2018-05-13 19:01 | Emergency (ER) | payer MEDICAID ==
[2018-05-13 19:29] VITALS: BP 129/67
--- NOTE | 2018-05-13 20:04 | EDM.PDOC ---
ED HPI GENERAL MEDICAL PROBLEM - General Chief Complaint: Lower Extremity Injury/Pain Stated Complaint: INJURED RT BIG TOE Time Seen by Provider: 05/13/18 19:59 Source of Information: Reports: Patient History Limitations: Reports: No Limitations - History of Present Illness INITIAL COMMENTS - FREE TEXT/NARRATIVE: Patient accidentally kicked a cement wall this morning @7am while playing kickball. Complains of right great toe pain. Onset: Today Location: Reports: Lower Extremity, Right Quality: Reports: Ache Severity: Moderate Right great toe Pain Score (Numeric/FACES): 8 - Related Data Allergies Allergy/AdvReac Type Severity Reaction Status Date / Time No Known Allergies Allergy Verified 05/13/18 19:26 Home Meds: Home Meds Albuterol [Ventolin HFA] 2 puff INH Q6HR PRN 03/05/18 [History] Past Medical History HEENT History: Reports: Impaired Vision Cardiovascular History: Reports: Blood Clots/VTE/DVT Respiratory History: Reports: COPD, PE Gastrointestinal History: Reports: GERD Musculoskeletal History: Reports: Back Pain, Chronic, Other (See Below) Other Musculoskeletal History: fx R 5th digit. 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 - Infectious Disease History Infectious Disease History: Reports: Chicken Pox - Past Surgical History HEENT Surgical History: Reports: Oral Surgery Other Respiratory Surgeries/Procedures: PE x 6 years ago GI Surgical History: Reports: Appendectomy, Cholecystectomy Other Musculoskeletal Surgeries/Procedures:: tailbone surgery Social & Family History - Family History Family Medical History: Noncontributory - Tobacco Use Smoking Status *Q: Current Every Day Smoker Years of Tobacco use: 1 Packs/Tins Daily: 22 - Caffeine Use Caffeine Use: Reports: Soda - Recreational Drug Use Recreational Drug Use: No Review of Systems - Review of Systems Review Of Systems: ROS reveals no pertinent complaints other than HPI. ED EXAM, GENERAL - Physical Exam Exam: See Below Exam Limited By: No Limitations General Appearance: Alert, No Apparent Distress Ears: Normal External Exam Nose: Normal Inspection Throat/Mouth: No Airway Compromise Head: Atraumatic, Normocephalic Neck: Full Range of Motion Respiratory/Chest: No Respiratory Distress Peripheral Pulses: 2+: Dorsalis Pedis (R) Extremities: Other (right great toe subungual hematoma, ecchymosis to tip of toe , swelling and moderate tenderness) Skin Exam: Warm, Dry ED TRAUMA EXTREMITY PROCEDURES - Additional/Other Procedure(s) Other (Free Text) Procedure(s): Subungual hematoma evacuated using a fine tip electrocautery tool. Course - Vital Signs Last Recorded V/S: Last Vital Signs Temp 36.8 C 05/13/18 19:28 Pulse 76 05/13/18 19:28 Resp 16 05/13/18 19:28 BP 129/67 05/13/18 19:28 Pulse Ox 99 05/13/18 19:28 - Orders/Labs/Meds Orders: Active Orders 24 hr Category Date Time Status Toes Great Toe Rt T5 [CR] Stat Exams 05/13/18 19:21 Taken Bacitracin [Bacitracin Oint 1 GM] Med 05/13/18 20:19 Once 1 dose TOP ONETIME ONE - Radiology Interpretation Free Text/Narrative:: Right great toe xray: NAD Departure - Departure Time of Disposition: 20:20 Disposition: Home, Self-Care 01 Condition: Good Clinical Impression: Contusion of toe of right foot Qualifiers: Encounter type: initial encounter Toe: great toe Damage to nail status: without damage Qualified Code(s): S90.111A - Contusion of right great toe without damage to nail, initial encounter Subungual hematoma of great toe of right foot Qualifiers: Encounter type: initial encounter Qualified Code(s): S90.211A - Contusion of right great toe with damage to nail, initial encounter - Discharge Information *PRESCRIPTION DRUG MONITORING PROGRAM REVIEWED*: Yes *COPY OF PRESCRIPTION DRUG MONITORING REPORT IN PATIENT BORIS: No Instructions: Contusion, [id number], Subungual Hematoma, [id number] Referrals: PCP,None [Primary Care Provider] - Forms: ED Department Discharge Additional Instructions: Take Ibuprofen as needed, elevate, follow up in 1 week if symptoms don't resolve. - My Orders Last 24 Hours: My Active Orders 05/13/18 19:21 Toes Great Toe Rt T5 [CR] Stat 05/13/18 20:19 Bacitracin [Bacitracin Oint 1 GM] 1 dose TOP ONETIME ONE - Assessment/Plan Last 24 Hours: My Active Orders 05/13/18 19:21 Toes Great Toe Rt T5 [CR] Stat 05/13/18 20:19 Bacitracin [Bacitracin Oint 1 GM] 1 dose TOP ONETIME ONE
[2018-05-13] MEDS ORDERED: Bacitracin Oint 1 GM U/D Packet TOP ONE (20:19)
== END 2018-05-13 20:30 | disposition home or self-care (01) ==
LOC: FB.ED 19:01
DX: S90.211A Contusion of right great toe with damage to nail, initial encounter (principal); J44.9 Chronic obstructive pulmonary disease, unspecified; E66.9 Obesity, unspecified; F17.210 Nicotine dependence, cigarettes, uncomplicated; W22.01XA Walked into wall, initial encounter
CPT/HCPCS: 11740; 73660-T5; 99282; 99283

== ENCOUNTER 2018-07-25 17:38 | Emergency (ER) | payer SELFPAY ==
[2018-07-25] MEDS ORDERED: Albuterol 8 GM Inhaler INH ONE (17:39)
--- NOTE | 2018-07-25 17:59 | EDM.PDOC ---
ED HPI GENERAL MEDICAL PROBLEM - General Stated Complaint: SHORT OF BREATH Time Seen by Provider: 07/25/18 17:50 Source of Information: Reports: Patient, Significant Other - History of Present Illness INITIAL COMMENTS - FREE TEXT/NARRATIVE: pt comes by EMS with his friend , he is alert on arrival, apparently became very emotional after law enforcement has taken his daughter from him today and collapsed , he is alert / oriented here on arrival and tearful , report recurrent right sided chest pain and SOB, tells me has those similar episodes since he had pulmonary embolism 5 years ago , pt denies using any drugs today, and denies any head injury or any other associated sx or concerns. - Related Data Allergies Allergy/AdvReac Type Severity Reaction Status Date / Time No Known Allergies Allergy Verified 07/25/18 19:00 Home Meds: Home Meds NK [No Known Home Meds] 07/25/18 [History] Past Medical History - Past Health History Medical/Surgical History: Denies Medical/Surgical History HEENT History: Reports: Impaired Vision Cardiovascular History: Reports: Blood Clots/VTE/DVT Respiratory History: Reports: COPD, PE Gastrointestinal History: Reports: GERD Musculoskeletal History: Reports: Back Pain, Chronic, Other (See Below) Other Musculoskeletal History: fx R 5th digit. 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 - Infectious Disease History Infectious Disease History: Reports: Chicken Pox - Past Surgical History HEENT Surgical History: Reports: Oral Surgery Other Respiratory Surgeries/Procedures: PE x 6 years ago GI Surgical History: Reports: Appendectomy, Cholecystectomy Other Musculoskeletal Surgeries/Procedures:: tailbone surgery Social & Family History - Family History Family Medical History: Noncontributory - Caffeine Use Caffeine Use: Reports: Soda ED ROS GENERAL - Review of Systems Review Of Systems: See Below Constitutional: Reports: No Symptoms Respiratory: Reports: Shortness of Breath Cardiovascular: Reports: No Symptoms GI/Abdominal: Reports: No Symptoms Neurological: Denies: Dizziness, Headache, Seizure, Syncope Psychiatric: Reports: Depression. Denies: Homicidal Ideation, Suicidal Ideation ED EXAM, GENERAL - Physical Exam Exam: See Below Exam Limited By: No Limitations General Appearance: Alert, Anxious Throat/Mouth: Normal Inspection, Normal Lips, Normal Teeth, Normal Gums, Normal Oropharynx, Normal Voice, No Airway Compromise Head: Atraumatic, Normocephalic Respiratory/Chest: No Respiratory Distress, Lungs Clear, Normal Breath Sounds Cardiovascular: Normal Peripheral Pulses, Regular Rate, Rhythm, No Edema, No Gallop, No JVD, No Murmur, No Rub GI/Abdominal: Normal Bowel Sounds Neurological: Alert, Oriented, CN II-XII Intact, Normal Cognition, Normal Gait, Normal Reflexes, No Motor/Sensory Deficits Course - Vital Signs Text/Narrative:: pt is alert and oriented here now while awaiting for his labs, is ambulatory and very much asymptomatic. i did hold on his ativan as he seemed comfortable. labs results were explained to pt. pt has side effects related to drug abuse and emotional distress , he is medically stable for discharge. pt was given MDI inhaler for his chronic asthma. Last Recorded V/S: Last Vital Signs Temp 36.8 C 07/25/18 18:55 Pulse 80 07/25/18 18:55 Resp 18 07/25/18 18:55 BP 139/81 07/25/18 18:55 Pulse Ox 100 07/25/18 18:55 - Orders/Labs/Meds Orders: Active Orders 24 hr Category Date Time Status EKG Documentation Completion [RC] ASDIRECTED Care 07/25/18 18:03 Active Chest 1V Frontal [CR] Stat Exams 07/25/18 18:03 Ordered Sodium Chloride 0.9% [Normal Saline] 1,000 ml Med 07/25/18 18:15 Active IV ASDIRECTED EKG 12 Lead [EK] Routine Ther 07/25/18 18:03 Ordered Medication Orders Sodium Chloride (Normal Saline) 1,000 mls @ 999 mls/hr IV ASDIRECTED JOSH Last Admin: 07/25/18 18:30 Dose: 999 mls/hr Labs: Laboratory Tests 07/25/18 07/25/18 07/25/18 Range/Units 18:10 18:10 18:10 WBC 6.4 (4.5-12.0) X10-3/uL RBC 4.93 (4.30-5.75) x10(6)uL Hgb 15.3 (13.5-17.8) g/dL Hct 44.4 (30.0-51.3) % MCV 90.1 (80-96) fL MCH 31.1 (27.7-33.6) pg MCHC 34.5 (32.2-35.4) g/dL RDW 12.2 (11.5-15.5) % Plt Count 315 (125-369) X10(3)uL MPV 8.0 (7.4-10.4) fL Neut % (Auto) 62.0 (46-82) % Lymph % (Auto) 25.5 (13-37) % [place] % (Auto) 9.6 (4-12) % Eos % (Auto) 2 (1.0-5.0) % Baso % (Auto) 1 (0-2) % Neut # (Auto) 4.0 (1.6-8.3) # Lymph # (Auto) 1.6 (0.6-5.0) # [place] # (Auto) 0.6 (0.0-1.3) # Eos # (Auto) 0.2 (0.0-0.8) # Baso # (Auto) 0.0 (0.0-0.2) # Sodium 142 (135-145) mmol/L Potassium 4.1 (3.5-5.3) mmol/L Chloride 102 (100-110) mmol/L Carbon Dioxide 31 (21-32) mmol/L BUN 12 (7-18) mg/dL Creatinine 1.1 (0.70-1.30) mg/dL Est Cr Clr Drug Dosing TNP Estimated GFR (MDRD) > 60 (>60) BUN/Creatinine Ratio 10.9 (9-20) Glucose 82 (80-116) mg/dL Calcium 8.6 (8.6-10.2) mg/dL Total Bilirubin 0.7 (0.1-1.3) mg/dL AST 30 H D (5-25) IU/L ALT 29 D (12-36) U/L Alkaline Phosphatase 101 (56-112) IU/L Troponin I < 0.017 L (<0.017-0.056) ng/mL Total Protein 6.9 (6.0-8.0) g/dL Albumin 3.8 (3.5-5.2) g/dL Globulin 3.1 g/dL Albumin/Globulin Ratio 1.2 Urine Opiates Screen (NEGATIVE) Ur Oxycodone Screen (NEGATIVE) Ur Propoxyphene Screen (NEGATIVE) Ur Barbituates Screen (NEGATIVE) Ur Tricyclics Screen (NEGATIVE) Ur Phencyclidine Scrn (NEGATIVE) Ur Amphetamine Screen (NEGATIVE) Urine MDMA Screen (NEGATIVE) U Benzodiazepines Scrn (NEGATIVE) U Cocaine Metab Screen (NEGATIVE) U Marijuana (THC) Screen (NEGATIVE) 07/25/18 Range/Units 18:30 WBC (4.5-12.0) X10-3/uL RBC (4.30-5.75) x10(6)uL Hgb (13.5-17.8) g/dL Hct (30.0-51.3) % MCV (80-96) fL MCH (27.7-33.6) pg MCHC (32.2-35.4) g/dL RDW (11.5-15.5) % Plt Count (125-369) X10(3)uL MPV (7.4-10.4) fL Neut % (Auto) (46-82) % Lymph % (Auto) (13-37) % [place] % (Auto) (4-12) % Eos % (Auto) (1.0-5.0) % Baso % (Auto) (0-2) % Neut # (Auto) (1.6-8.3) # Lymph # (Auto) (0.6-5.0) # [place] # (Auto) (0.0-1.3) # Eos # (Auto) (0.0-0.8) # Baso # (Auto) (0.0-0.2) # Sodium (135-145) mmol/L Potassium (3.5-5.3) mmol/L Chloride (100-110) mmol/L Carbon Dioxide (21-32) mmol/L BUN (7-18) mg/dL Creatinine (0.70-1.30) mg/dL Est Cr Clr Drug Dosing Estimated GFR (MDRD) (>60) BUN/Creatinine Ratio (9-20) Glucose (80-116) mg/dL Calcium (8.6-10.2) mg/dL Total Bilirubin (0.1-1.3) mg/dL AST (5-25) IU/L ALT (12-36) U/L Alkaline Phosphatase (56-112) IU/L Troponin I (<0.017-0.056) ng/mL Total Protein (6.0-8.0) g/dL Albumin (3.5-5.2) g/dL Globulin g/dL Albumin/Globulin Ratio Urine Opiates Screen Negative (NEGATIVE) Ur Oxycodone Screen Negative (NEGATIVE) Ur Propoxyphene Screen Negative (NEGATIVE) Ur Barbituates Screen Negative (NEGATIVE) Ur Tricyclics Screen Negative (NEGATIVE) Ur Phencyclidine Scrn Negative (NEGATIVE) Ur Amphetamine Screen Positive H (NEGATIVE) Urine MDMA Screen Positive H (NEGATIVE) U Benzodiazepines Scrn Negative (NEGATIVE) U Cocaine Metab Screen Negative (NEGATIVE) U Marijuana (THC) Screen Negative (NEGATIVE) Meds: Medications Generic Name Dose Route Start Last Admin Trade Name Freq PRN Reason Stop Dose Admin Sodium Chloride 1,000 mls @ 999 mls/hr 07/25/18 18:15 07/25/18 18:30 Normal Saline IV 999 mls/hr ASDIRECTED JOSH Administration Discontinued Medications Generic Name Dose Route Start Last Admin Trade Name Freq PRN Reason Stop Dose Admin Lorazepam 1 mg 07/25/18 18:03 07/25/18 18:10 Ativan IVPUSH 07/25/18 18:04 Not Given ONETIME ONE Departure - Departure Time of Disposition: 19:29 Disposition: Home, Self-Care 01 Clinical Impression: Illicit drug use - Discharge Information Referrals: PCP,None [Primary Care Provider] - - My Orders Last 24 Hours: My Active Orders 07/25/18 18:03 EKG Documentation Completion [RC] ASDIRECTED Chest 1V Frontal [CR] Stat EKG 12 Lead [EK] Routine 07/25/18 18:15 Sodium Chloride 0.9% [Normal Saline] 1,000 ml IV ASDIRECTED - Assessment/Plan Last 24 Hours: My Active Orders 07/25/18 18:03 EKG Documentation Completion [RC] ASDIRECTED Chest 1V Frontal [CR] Stat EKG 12 Lead [EK] Routine 07/25/18 18:15 Sodium Chloride 0.9% [Normal Saline] 1,000 ml IV ASDIRECTED
[2018-07-25] MEDS ORDERED: LORazepam 2 MG/ML SDV IVPUSH ONE (18:03)
[2018-07-25] MEDS ORDERED: Sodium Chloride 0.9% 1,000 ML IV SCH (18:15)
[2018-07-25 19:00] VITALS: BP 139/81
[2018-07-25] MEDS ORDERED: Albuterol 8 GM Inhaler INH PRN (19:29)
--- NOTE | 2018-07-28 11:42 | CR ---
INDICATION: Chest pain. CHEST: Portable AP upright view of the chest was obtained 07/25/18 and compared with 05/22/17 and 05/02/17. The heart remains normal in size and shape. Mediastinum and bony thorax were unremarkable. Overlying EKG leads are noted. An active infiltrate or effusion was not identified. IMPRESSION: Stable chest - no active disease. MTDD
== END 2018-07-25 19:48 | disposition home or self-care (01) ==
LOC: FB.ED 17:38
DX: F19.10 Other psychoactive substance abuse, uncomplicated (principal); J44.9 Chronic obstructive pulmonary disease, unspecified; K21.9 Gastro-esophageal reflux disease without esophagitis
CPT/HCPCS: 36415; 71045; 80053; 80305; 84484; 85025; 93005; 96360; 99284; J7030; A9270-GY

== ENCOUNTER 2019-11-22 15:45 | Emergency (ER) | payer MEDICAID ==
[2019-11-22 16:01] VITALS: BP 111/68; PULSE 99
[2019-11-22] MEDS ORDERED: Sodium Chloride 0.9% 1,000 ML IV ONE ×2 (16:05→16:06)
[2019-11-22] MEDS ORDERED: Ketorolac 30 MG/ML SDV IVPUSH ONE (16:07)
--- NOTE | 2019-11-22 16:12 | EDM.PDOC ---
ED HPI GENERAL MEDICAL PROBLEM - General Chief Complaint: General Stated Complaint: SOB AND COUGHING Time Seen by Provider: 11/22/19 15:55 Source of Information: Reports: Patient History Limitations: Reports: No Limitations - History of Present Illness INITIAL COMMENTS - FREE TEXT/NARRATIVE: c/o tired, not feeling well for 3d has a bifrontal JAIMES, slight cough which is chronic smokes 1 ppd, says he has been dx with emphysema and uses an alb HFA prn, says he ran out, no wheezing today homeless x 2m, says he sleeps "where ever" not eaten today denies street drugs - Related Data Allergies Allergy/AdvReac Type Severity Reaction Status Date / Time No Known Allergies Allergy Verified 07/25/18 19:00 Home Meds: Home Meds Albuterol Sulfate [Albuterol Sulfate Hfa] 8.5 gm IH Q4H PRN #1 [email or web address] 11/22/19 [Rx] Past Medical History - Past Health History Medical/Surgical History: Denies Medical/Surgical History HEENT History: Reports: Impaired Vision Cardiovascular History: Reports: Blood Clots/VTE/DVT Respiratory History: Reports: COPD, PE Gastrointestinal History: Reports: GERD Musculoskeletal History: Reports: Back Pain, Chronic, Other (See Below) Other Musculoskeletal History: fx R 5th digit. 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 - Infectious Disease History Infectious Disease History: Reports: Chicken Pox - Past Surgical History HEENT Surgical History: Reports: Oral Surgery Other Respiratory Surgeries/Procedures: PE x 6 years ago GI Surgical History: Reports: Appendectomy, Cholecystectomy Other Musculoskeletal Surgeries/Procedures:: tailbone surgery Social & Family History - Family History Family Medical History: Noncontributory - Caffeine Use Caffeine Use: Reports: Soda ED ROS GENERAL - Review of Systems Review Of Systems: See Below Constitutional: Reports: Malaise HEENT: Reports: No Symptoms Respiratory: Reports: Cough Cardiovascular: Reports: No Symptoms Endocrine: Reports: No Symptoms GI/Abdominal: Reports: No Symptoms : Reports: No Symptoms Musculoskeletal: Reports: No Symptoms Skin: Reports: No Symptoms Neurological: Reports: Headache Psychiatric: Reports: No Symptoms Hematologic/Lymphatic: Reports: No Symptoms Immunologic: Reports: No Symptoms ED EXAM, GENERAL - Physical Exam Exam: See Below Exam Limited By: No Limitations General Appearance: Alert, WD/WN, No Apparent Distress, Other (appears tired, NAD, nontoxic, shirt is moist with sweat, skin is dry) Eye Exam: Bilateral Eye: EOMI, PERRL Nose: Normal Inspection, Normal Mucosa, No Blood Throat/Mouth: Normal Inspection, Normal Lips, Normal Teeth, Normal Gums, Normal Oropharynx, Normal Voice, No Airway Compromise Head: Atraumatic, Normocephalic Neck: Normal Inspection, Supple, Non-Tender, Full Range of Motion. No: Lymphadenopathy (R), Lymphadenopathy (L) Respiratory/Chest: No Respiratory Distress, Lungs Clear, Normal Breath Sounds, No Accessory Muscle Use, Chest Non-Tender Cardiovascular: Regular Rate, Rhythm, No Edema, No Murmur GI/Abdominal: Soft, Non-Tender, No Distention Back Exam: Normal Inspection, Full Range of Motion, NT Extremities: Normal Inspection Neurological: Alert, CN II-XII Intact, Normal Cognition, No Motor/Sensory Defi cits Psychiatric: Normal Affect, Normal Mood Skin Exam: Warm, Dry, Intact, Normal Color, No Rash Lymphatic: No Adenopathy Course - Vital Signs Last Recorded V/S: Last Vital Signs Temp 36.8 C 11/22/19 16:01 Pulse 99 11/22/19 16:01 Resp 14 11/22/19 16:01 BP 111/68 11/22/19 16:01 Pulse Ox 100 11/22/19 16:01 - Orders/Labs/Meds Orders: Active Orders 24 hr Category Date Time Status DRUG SCREEN, URINE ALERE [URCHEM] Stat Lab 11/22/19 16:06 Ordered UA W/MICROSCOPIC [URIN] Stat Lab 11/22/19 16:06 Ordered Labs: Laboratory Tests 11/22/19 11/22/19 11/22/19 Range/Units 17:05 17:05 17:05 WBC 9.1 (4.5-12.0) X10-3/uL RBC 5.08 (4.30-5.75) x10(6)uL Hgb 15.3 (13.5-17.8) g/dL Hct 45.5 (30.0-51.3) % MCV 89.6 (80-96) fL MCH 30.1 (27.7-33.6) pg MCHC 33.6 (32.2-35.4) g/dL RDW 12.0 (11.5-15.5) % Plt Count 316 (125-369) X10(3)uL MPV 7.5 (7.4-10.4) fL Neut % (Auto) 75.6 (46-82) % Lymph % (Auto) 15.4 (13-37) % [place] % (Auto) 6.8 (4-12) % Eos % (Auto) 0 L (1.0-5.0) % Baso % (Auto) 2 (0-2) % Neut # (Auto) 6.9 (1.6-8.3) # Lymph # (Auto) 1.4 (0.6-5.0) # [place] # (Auto) 0.6 (0.0-1.3) # Eos # (Auto) 0.0 (0.0-0.8) # Baso # (Auto) 0.2 (0.0-0.2) # Sodium 139 (135-145) mmol/L Potassium 4.3 (3.5-5.3) mmol/L Chloride 103 (100-110) mmol/L Carbon Dioxide 31 (21-32) mmol/L BUN 15 (7-18) mg/dL Creatinine 1.2 (0.70-1.30) mg/dL Est Cr Clr Drug Dosing TNP Estimated GFR (MDRD) > 60 (>60) BUN/Creatinine Ratio 12.5 (9-20) Glucose 82 (80-116) mg/dL Calcium 9.4 (8.6-10.2) mg/dL Total Bilirubin 0.5 (0.1-1.3) mg/dL AST 13 D (5-25) IU/L ALT 21 D (12-36) U/L Alkaline Phosphatase 96 (56-112) IU/L C-Reactive Protein < 0.3 L (0.5-0.9) mg/dL Total Protein 7.2 (6.0-8.0) g/dL Albumin 3.9 (3.5-5.2) g/dL Globulin 3.3 g/dL Albumin/Globulin Ratio 1.2 Meds: Medications Discontinued Medications Generic Name Dose Route Start Last Admin Trade Name Freq PRN Reason Stop Dose Admin Sodium Chloride 1,000 mls @ 999 mls/hr 11/22/19 16:05 Normal Saline IV 11/22/19 17:05 .BOLUS ONE Sodium Chloride 1,000 mls @ 999 mls/hr 11/22/19 16:06 Normal Saline IV 11/22/19 17:06 .BOLUS ONE Ketorolac Tromethamine 30 mg 11/22/19 16:07 Toradol IVPUSH 11/22/19 16:08 ONETIME ONE - Re-Assessments/Exams Free Text/Narrative Re-Assessment/Exam: 11/22/19 18:15 unable to get IV started, pt declined antecubital IV b/l d/t prior IVDA and "wanting them to heal" did eat and drink cbc/cmp/crp all unremarkable pt provided a u/a and then said that he wanted to leave did want an Rx sent in for alb HFA to [facility] Departure - Departure Time of Disposition: 18:16 Disposition: Home, Self-Care 01 Condition: Good Clinical Impression: Heat exhaustion, Dehydration - Discharge Information *PRESCRIPTION DRUG MONITORING PROGRAM REVIEWED*: Not Applicable *COPY OF PRESCRIPTION DRUG MONITORING REPORT IN PATIENT BORIS: Not Applicable Prescriptions: Albuterol Sulfate [Albuterol Sulfate Hfa] 8.5 gm IH Q4H PRN #1 hfa.aer.ad PRN Reason: Wheezing Instructions: Heat Exhaustion, Dehydration, Adult Referrals: PCP,None [Primary Care Provider] - Forms: ED Department Discharge Additional Instructions: Maintain fluids. Get adequate rest. Stay out of the sun as much as possible. See your doctor in the next week for additional recommendations. A prescription for albuterol inhaler was sent to [facility] in [place]. Sepsis Event Note (ED) - Evaluation Sepsis Screening Result: No Definite Risk - Focused Exam Vital Signs: Vital Signs Temp Pulse Resp BP Pulse Ox 11/22/19 16:01 36.8 C 99 14 111/68 100 - My Orders Last 24 Hours: My Active Orders 11/22/19 16:06 DRUG SCREEN, URINE ALERE [URCHEM] Stat UA W/MICROSCOPIC [URIN] Stat - Assessment/Plan Last 24 Hours: My Active Orders 11/22/19 16:06 DRUG SCREEN, URINE ALERE [URCHEM] Stat UA W/MICROSCOPIC [URIN] Stat
== END 2019-11-22 18:27 | disposition home or self-care (01) ==
LOC: FB.ED 15:45
DX: T67.5XXA Heat exhaustion, unspecified, initial encounter (principal); E86.0 Dehydration; J44.9 Chronic obstructive pulmonary disease, unspecified; F17.210 Nicotine dependence, cigarettes, uncomplicated; E66.9 Obesity, unspecified; Z68.29 Body mass index [BMI] 29.0-29.9, adult
CPT/HCPCS: 36415; 80053; 85025; 86140; 99284